=== PATIENT | male | born 1945 | race Caucasian/White ===

== ENCOUNTER 2017-03-13 14:22 | Inpatient (IN) | payer MEDICARE ==
[~2017-03-13] VITALS: Ht 175.3 cm; Wt 98.3 kg
[~2017-03-13 14:22] MED LIST: ACET-171 PO; ALLER-TEC PO; CARV6.252 PO; CHOND PO; CYAN10008 PO; FRSM80T PO; GLUCOS PO; INDA2.5T2 PO; INSU100I13 SUBQ; INSU200I SQ; LISI10TA PO; LOVENOX BRIDGING; PRAV40TA PO; VIT1CAPS8 PO; WARF7.5T4 PO
[2017-03-13 14:31] VITALS: BP 92/65; PULSE 102; RESP 15; O2SAT 95
--- NOTE | 2017-03-13 15:21 | DRSVH ---
PROCEDURE: X-RAY CHEST, TWO VIEWS ([id number]) INDICATIONS: low blood pressure TECHNIQUE: 2 views of the chest were acquired. COMPARISON: [facility], CR, CHEST 2VW, 05/13/2015, 7:25. [facility], CT, CT CHEST W CON, 12/15/2015, 16:49. FINDINGS: Surgical changes and devices: None. Lungs and pleura: No pleural effusions or pneumothorax. Lungs are clear. Elevation left hemidiaphra gm stable compared to prior examination. Mediastinum: Mediastinal contours are normal. Heart size is enlarged. Bones and chest wall: No suspicious bony abnormalities. Soft tissues appear unremarkable. L1 compr ession fracture is noted which has occurred in the interval since prior examination. IMPRESSION: 1. No acute cardiopulmonary disease process. 2. L1 compression fracture which may be acute. Please correlate with clinical data. Dictated by: Faby Vanegas MD, PhD on 03/13/2017 at 15:17 Approved by: Faby Vanegas MD, PhD on 03/13/2017 at 15:19
[2017-03-13 15:26] LABS: BASOPHILS % (AUTO) 0.3 % (0-3); EOSINOPHILS % (AUTO) 0.6 % (0-5); MONOCYTES % (AUTO) 8.9 % (4-12); Mean Corpuscular Hemoglobin 28.6 pg (27.0-35.0); NEUTROPHILS % (AUTO) 83.5 % (40-74); Platelet Count 314 bil/L (150-400)
[2017-03-13] MEDS ORDERED: 0.9% Sodium Chloride 500 ML IV ONE (15:40)
[2017-03-13 15:48] LABS: INR 4.83 ratio
[2017-03-13 16:08] LABS: Magnesium 2.2 mg/dL (1.6-2.6)
[2017-03-13 16:09] LABS: TROPONIN T 0.067 ug/L (0.0-0.011)
[2017-03-13 16:19] VITALS: BP 102/67; PULSE 95; RESP 16; O2SAT 92
--- NOTE | 2017-03-13 16:41 | DRSVH ---
PROCEDURE: CT BRAIN WITHOUT CONTRAST ([id number]) INDICATIONS: fall, on coumadin TECHNIQUE: Noncontrast 4.5 mm thick angled axial sections acquired from the foramen magnum to the vertex, with c oronal reformats. COMPARISON: None. FINDINGS: Image quality: Diagnostic. Brain: There is no acute intra-axial or extra-axial hemorrhage. No extra-axial fluid collection is i dentified. There is no midline shift or mass effect. The orbits are grossly unremarkable. Atheroscl erosis is noted involving the intracranial internal carotid arteries. No large areas of diffusely decreased attenuation are evident within the brain to suggest diffuse cer ebral edema. Moderate-sized confluent and focal areas of low-attenuation are present within the toi ventricular and deep white matter of the supratentorial brain. The ventricles and cortical sulci are moderately prominent. Bones: Calvarium and visualized facial bones are grossly intact. The imaged paranasal sinuses and m astoid air cells are clear. IMPRESSION: 1. No acute intracranial hemorrhage. 2. Moderate parenchymal volume loss and chronic small vessel ischemic changes. Dictated by: Jadiel Ragland M.D. on 03/13/2017 at 15:38 Approved by: Jadiel Ragland M.D. on 03/13/2017 at 15:40
--- NOTE | 2017-03-13 16:43 | ED.REPORT ---
HPI-General Illness Date of Service March 13, 2017 ED Provider: Mickey Crisostomo DO Pt is a 71 year old male with a hx of chronic pain, dementia, chronic afib on Warfarin, DMI, and CHF presenting to the ED complaining of generalized diffuse pain that starts in his back and radiates around his body. Associated symptoms include back pain, lower abdominal pain, belching and vomiting. He was seen in his PCP's office today for a follow up after an episode of afib and was sent to the ER for low blood pressure. His reports that he has had some recent weight loss which she thinks may have changed the shape of his abdomen, putting pressure on his back. Denies bloody stool, bowel or bladder incontinence or LE swelling. Nursing Notes Stated Complaint: LOW BLOOD PRESSURE & PAIN Chief Complaint: General Complaint Nursing Notes Reviewed: Yes Allergies: Coded Allergies: atorvastatin (Verified Adverse Reaction, Severe, myalgias, 03/13/17) Scheduled Carvedilol (Carvedilol) 12.5 Mg Tablet 12.5 MG PO BID Cyanocobalamin (Vitamin B-12) (Vitamin B-12) 1,000 Mcg Tablet 1,000 MCG PO DAILY Furosemide (Furosemide) 80 Mg Tab 80 MG PO BID Indapamide (Indapamide) 2.5 Mg Tablet 2.5 MG PO DAILY Insulin Glargine (Lantus U100 Insulin Vial) 100 Unit/Ml Vial 60 UNIT SUBQ HS Insulin Lispro (Humalog Kwikpen) 200 Unit/Ml (3 Ml) Insuln.pen 1 UNIT SQ TIDAC SLIDING SCALE Lisinopril (Lisinopril) 10 Mg Tablet 10 MG PO DAILY Pravastatin (Pravastatin) 40 Mg Tablet 40 MG PO DAILY Vit C/Vit E/Lutein/Min/[place]-3 (Ocuvite Softgel) 1 Each Capsule 1 EACH PO DAILY Warfarin Sodium (Warfarin Sodium) 7.5 Mg Tablet 7.5 MG PO SUN,WED,SUN Warfarin Sodium (Warfarin Sodium) 5 Mg Tablet 5 MG PO SUN,SUN,,SAT Scheduled PRN Acetaminophen (Acetaminophen) 500 Mg Tablet 1,000 MG PO Q6H PRN PRN For Pain General Time Seen by MD: 15:01 Chief Complaint Back pain Hx Obtained From: Patient, Spouse Arrived By: Walk-in Sudden in Onset?: No Onset Occurred: Onset unknown Symptom Duration: Since onset Location: : Back Quality: Painful Severity: Current: Moderate Severity: Maximum: Moderate Recent Healthcare: No recent doctor visit, No recent hospitalization Similar Sx Previous: Yes Past Medical History Past Medical History chronic pain, dementia, chronic afib on Warfarin, DMI, and CHF, COPD, GERD, hiatal hernia, anxiety, hyperparathyroidism w hx of hypercalcemia Smoking History Former Smoker Ambulatory Status Independent Review of Systems Full Review of Systems GI: Reports: Abdominal pain, Vomiting, Denies: Bloody/tarry stool Male: Denies Incontinence Musculoskeletal: Reports: Back pain, Denies: Extremity swelling Complete sys rev & neg: except as marked. Physical Exam Vital Signs Vital Signs Date Time Temp Pulse Resp B/P Pulse Ox O2 Delivery O2 Flow Rate FiO2 03/13/17 16:19 36.1 95 16 102/67 92 Room Air 03/13/17 14:31 36.2 102 15 92/65 95 Room Air Initial VS: Reviewed Head / Eyes: Atraumatic, Normocephalic, PERRL ENT: Mucous membranes moist, Conjunctiva normal, No scleral icterus Respiratory: Breath sounds normal, Clear to auscultation, No respiratory distress Extremities: Vascular intact, Neuro intact, No swelling, No tenderness Skin: Warm, Dry, No cyanosis Neurologic: Alert, Oriented, Nonfocal General/Constitutional: Awake, Alert Pale Cardiovascular: No murmurs Heart Rate / Rhythm: Positive: Irreg irregular rhythm, Tachycardia BP low. Abdomen: No guarding, No rebound Tenderness/Guarding/Rebound: Positive: Tender diffuse Bowel Sounds / Distention: Positive: Distention mild Back: Full range of motion Some lumbar tenderness to palpation Lower Extremity / Pelvis / MS: No edema Psychiatric: Affect NL, Mood NL Mildly confused Interpretation & Diagnostics Interpretation & Diagnostics: LABS 12/26/16 BUN 42, Creat 1.29, Ca 9.5, HgB 12.8 Lab Results Interpretation Result Diagram: 03/13/17 1515 03/13/17 1515 Test 03/13/17 15:15 White Blood Count 10.3th/mm3 (3.8-10.1) Red Blood Count 4.93mil/mm3 (4.40-5.80) Hemoglobin 14.1g/dL (13.8-17.2) Hematocrit 42.9% (41.0-50.0) Mean Corpuscular Volume 87.0fL (81-100) Mean Corpuscular Hemoglobin 28.6pg (27.0-35.0) Mean Corpuscular Hemoglobin Concent 32.9% (32.0-37.0) Red Cell Distribution Width 14.8% (12.3-15.4) Platelet Count 314bil/L (150-400) Neutrophils (%) (Auto) 83.5% (40-74) Lymphocytes (%) (Auto) 6.3% (14-46) Monocytes (%) (Auto) 8.9% (4-12) Eosinophils (%) (Auto) 0.6% (0-5) Basophils (%) (Auto) 0.3% (0-3) Prothrombin Time 53.4sec (8.1-12.5) Prothromb Time International Ratio 4.83ratio Sodium Level 131mEq/L (134-144) Potassium Level 3.9mEq/L (3.5-5.2) Chloride Level 84mEq/L (97-108) Carbon Dioxide Level 27mmol/L (18-29) Blood Urea Nitrogen 84mg/dL (8-27) Creatinine 1.86mg/dL (0.76-1.27) Estimat Glomerular Filtration Rate 38mL/min (>59) Glucose Level 212mg/dL (60-99) Calcium Level 11.0mg/dL (8.5-10.1) Magnesium Level 2.2mg/dL (1.6-2.6) Total Bilirubin 0.7mg/dL (0.0-1.2) Aspartate Amino Transf (AST/SGOT) 21U/L (0-50) Alanine Aminotransferase (ALT/SGPT) 15U/L (0-44) Alkaline Phosphatase 74U/L (25-160) Troponin T 0.067ug/L (0.0-0.011) Pro-B-Type Natriuretic Peptide 963.2pg/mL (0-376) Total Protein 8.1g/dL (6.4-8.4) Albumin 4.6g/dL (3.4-5.0) Hold Santa Top Tube Received (Received) ECG Interpretation ECG Interpretation: Afib with rvr. Old EKG was afib as well. Time: 15:16 Interpreted by: ED physician Abnormal Rate: 100 (102) X-Ray Chest Interpretation Chest Xray Interpretation: IMPRESSION: 1. No acute cardiopulmonary disease process. 2. L1 compression fracture which may be acute. Please correlate with clinical data. Dictated by: Faby Vanegas MD, PhD on 03/13/2017 at 15:17 View: AP & lat Interpretation / Wet Read by: Interpret - Radiologist CT Head Interpretation IMPRESSION: 1. No acute intracranial hemorrhage. 2. Moderate parenchymal volume loss and chronic small vessel ischemic changes. Dictated by: Jadiel Ragland M.D. on 03/13/2017 at 15:38 Study: Head CT no contrast Interpretation / Wet Read by: Interpret - Radiologist CT Abd / Pelvis Interpretation IMPRESSION: 1. New L1 compression fracture without retropulsion. 2. Mild prominence of the urinary bladder wall may be related to incomplete distention. Please correlate clinically to exclude cystitis. 3. Multiple subacute left-sided rib fractures. 4. Osteopenia. 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 -Coronary and aortic atherosclerosis. -Small bowel containing periumbilical hernia without obstruction. -Small fat containing left inguinal hernia. -Mild bilateral gynecomastia. Dictated by: Jadiel Ragland M.D. on 03/13/2017 at 15:51 Interpretation / Wet Read by: Interpret - Radiologist Re-Eval/Medical Decision Med Decision/Clinical Course Hypotension associated with dehydration and mild hyper calcium. His hemoglobin is stable, his stool guaiac was negative. He incidentally has some orthopedic injuries related to his recent falls. I strongly feel this patient ought to be admitted for IV hydration and further delineation of the symptoms. I do not see any obvious source of infection. Time of Eval: 15:40 Patient Status: Condition improved Re-Evaluation/Progress Note: Discussed radiology and lab results. Time of Eval: 16:44 Patient Status: Condition improved Re-Evaluation/Progress Note: Discussed CT results and plan for admission. Consultation : Referral / Consult Name: Dimas Lin MD Consulted With: Hospitalist Call Returned at: 17:18 Verifying Machine Operator: Will see patient, Agrees with plan, Accepts admit Counseled Regarding: Diagnosis, Lab results, Need for follow-up, When/why to return to ED Discharge & Departure Primary Impression: Acute kidney injury Additional Impressions: Supratherapeutic INR Hypotension Hypotension type: unspecified hypotension type Qualified Code: I95.9 - Hypotension, unspecified Disposition: Home Discharge Condition All VS Reviewed: Yes Condition: Improved Referrals: Norberto Ross DO (PCP) Frank Attestation Portions of this note were transcribed by Brittney Navarro. I, Dr. Crisostomo personally performed the history, physical exam and medical decision-making; I reviewed and confirmed the accuracy of the information in the transcribed note. Signed by: Frank Maria, 03/13/2017 at 1733. copies to: Norberto Ross Timothy S DO March 13, 2017 16:43 BRITTNEY NAVARRO March 13, 2017 16:44
--- NOTE | 2017-03-13 17:05 | DRSVH ---
PROCEDURE: CT ABDOMEN AND PELVIS WITHOUT CONTRAST ([id number]) INDICATIONS: abd pain, vomiting, low back pain TECHNIQUE: After the administration of oral contrast, 5 mm thick sections acquired from the diaphragms to the sy mphysis. 5 mm coronal and sagittal reformats were performed. For radiation dose reduction, the foll owing was used: automated exposure control, adjustment of mA and/or kV according to patient size. COMPARISON: [facility], CR, XR LUMBAR SPINE 2 OR 3VW, 09/05/2016, 9:30. [facility], CT, CT ABD PELVIS WO CON, 08/29/2016, 11:34. FINDINGS: Image quality: Excellent. ABDOMEN: Lung bases: Prominent elevation of the left diaphragm likely is related to diaphragmatic paralysis an d is similar to the previous study. Mild left basilar scarring versus atelectasis is noted. The alex ged portions of the right lung base are unremarkable. The heart is normal in size without a pericard ial effusion. Coronary artery atherosclerosis is present. Bilateral gynecomastia is present. Solid organs: The spleen, adrenals, liver, pancreas, and kidneys are similar to the previous exam. Peritoneum and bowel: The stomach, and duodenum, and remainder of the small bowel loops are nondilate d. Moderate residual stool seen within the colon. The appendix is well-visualized and normal. Ther e is no bowel obstruction. There is a moderate-sized periumbilical hernia containing several small b owel loops, which is unchanged. The proximal and distal small bowel loops to this hernia are nondila elli. No free fluid, loculated fluid collection or free air is evident within the abdomen. Nodes and vessels: No retroperitoneal or mesenteric adenopathy by size criteria. Aorta and inferior vena cava are normal in size. There is aortic atherosclerosis. Bones: There is a new L1 compression deformity identified with approximately 30-40% height loss that is located centrally with buckling along both the superior and inferior endplates. No additional com pression deformities are identified. No displaced fractures are seen. No significant retropulsion i s identified. No additional thoracic fractures or lumbar fractures are evident. T7, T8, and T9 left rib fractures are noted, which have a subacute appearance and have not significantly changed. The b one mineralization is diffusely decreased. PELVIS: Genitourinary: Mild prominence of the urinary bladder wall is noted. The prostate is not significant ly enlarged. There is no free fluid or loculated fluid collection within the pelvis. No free air is evident. Miscellaneous: There is a small fat containing left inguinal hernia. No pelvic lymphadenopathy is ev ident. Bones: No suspicious bony lesions. No acute pelvic fractures are seen. There is mild degenerative changes of the bilateral hips, pubis symphysis, and sacroiliac joints. IMPRESSION: 1. New L1 compression fracture without retropulsion. 2. Mild prominence of the urinary bladder wall may be related to incomplete distention. Please jennifer elate clinically to exclude cystitis. 3. Multiple subacute left-sided rib fractures. 4. Osteopenia. 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 -Coronary and aortic atherosclerosis. -Small bowel containing periumbilical hernia without obstruction. -Small fat containing left inguinal hernia. -Mild bilateral gynecomastia. Dictated by: Jadiel Ragland M.D. on 03/13/2017 at 15:51 Approved by: Jadiel Ragland M.D. on 03/13/2017 at 16:03
[2017-03-13] MEDS ORDERED: Pantoprazole 4 mg/mL 10 mL Inj IVPUSH ONE (17:10)
[2017-03-13] MEDS ORDERED: HYDROcodone-APAP 5-325 mg Tablet PO ONE (17:15)
[2017-03-13] MEDS: 0.9% Sodium Chloride 1,000 ML IV SCH (17:16)
[2017-03-13] MEDS ORDERED: INSU100V7 SUBQ (17:29)
[2017-03-13] MEDS ORDERED: CARV12.52 PO (17:29)
[2017-03-13] MEDS ORDERED: WARF5TAB7 PO (17:32)
[2017-03-13] MEDS ORDERED: WARF7.5T4 PO (17:32)
[2017-03-13 18:48] VITALS: BP 90/46; PULSE 94; RESP 23; O2SAT 94
--- NOTE | 2017-03-13 18:58 | PCM.HPMED ---
Subjective Date of Service March 13, 2017 Primary Provider: Admitting Physician: Primary Care Physician: Norberto Ross DO Attending Physician: Chief Complaint: Sent from clinic with hypotension tachycardia History of Present Illness: 71-year-old male with diabetes, hypertension, hypercalcemia, COPD, GERD, afib on coumadin sent from PCP with hypotension, tachycardia. pt has been closely followed by by PCP, seen 2weeks ago, note to have afib with [id number], PCP discussed with software engineer intern, decided to keep the regimen, wanted pt for follow up. patient went to clinic today. noticed BP86 /56, HR101, sent to ED for further eval. pt has baseline dementia, most of hx was obtained by at the bedside. As per , pt had fall due to weakness on LE when he got out of bed, since then, his chronic back pain got really worse , he has been declining functionally with very poor appetite, decreased oral intake, intermittent nausea, no vomiting, pt took a lot of Tums which made him gassy. but denied having abdominal pain, having soft stools at baseline, no constipation or diarrhea. for the past 2days, pt was not able to eat barely anything. As per , pt has been complaint to all his meds including coumadin , all of diuretics. In ED. VS 92/65, 102, afebrile, 95% on RA, labs showed mild leukocytosis, hyponatremia, markedly elevated BUN 84, cr1.86, mild troponemia, [id number]. CXR /abd pelvis CT/CTH were unremarkable. pt was given protonix, norco, 500cc NS. EKG showed afib During the interview, pt denied any SOB, chest pain, palpitation, cough, sputum , fever, chills, n/v/c/d, sick contacts. Review of Systems: Pertinent positives as noted in history of present illness. All other systems were reviewed and are negative Allergies Coded Allergies: atorvastatin (Verified Adverse Reaction, Severe, myalgias, 03/13/17) Home Medications as per PCP 03/13 Viet Estrada. [id number] 1945 03/13/2017 01:20 PM Page: 11/14 MEDICATIONS Medication Dose Sig Description Comments Aller-Albertina 10 mg tablet 10 mg take 1 tablet by oral route every day as needed carvedilol 12.5 mg tablet 12.5 mg take 1 tablet by oral route 2 times every day with food donepezil 5 mg tablet 5 mg take 1 tab AM and 2 tabs at bedtime for 2 weeks, then increase to 2 tabs BID thereafter FUROSEMIDE 80 MG TABLET 80 mg TAKE 1 TABLET BY MOUTH TWICE A DAY glucosamine-chondroitin 2,000 mg-1,200 mg/30 mL oral liquid 2,000 mg-1,200 mg/ 30 mL Take one ounce daily Humalog 100 unit/mL subcutaneous solution 100 unit/mL INJECT 45 TO 60 UNITS DAILY PER INSULIN PROTOCOL indapamide 2.5 mg tablet 2.5 mg take 1 tablet by oral route every day in the morning Lantus Solostar 100 unit/mL (3 mL) subcutaneous insulin pen 100 unit/mL (3 mL) INJECT 72 UNITS SUBCUTANEOUSLY ONCE DAILY IN 2 DIVIDED DOSES LISINOPRIL 10 MG TABLET 10 mg TAKE 1 TABLET BY MOUTH EVERY DAY Ocuvite 150 mg-30 unit-5 mg-150 mg capsule 150 mg-30 unit-5 mg-150 mg Take one capsule by mouth daily OneTouch Ultra Test strips test blood sugar ACHS PRAVASTATIN SODIUM 40 MG TAB 40 mg TAKE 1 TABLET BY MOUTH EVERY DAY SPIRONOLACTONE 25 MG TABLET 25 mg TAKE 1 TABLET BY MOUTH EVERY DAY Tylenol Ex Str Arthritis Pain 500 mg tablet 500 mg take 2 tablet by oral route every 6 hours as needed Vitamin B-12 1,000 mcg tablet 1,000 mcg Take one tablet by mouth daily warfarin 5 mg tablet 5 mg Take one and one half TABLETS (7.5mg)BY MOUTH ON SUN, SUN, and FRI and one tablet (5mg) all other days PMH Diabetic peripheral neuropathy associated with type 2 diabetes mellitus Hypertension Dyspnea Hypercalcemia Hyperlipidemia COPD GERD Mitral regurgitation Tricuspid regurgitation CHF Surgical History parathyroidectomy per Family History no CAD Social History Hx Alcohol Use: No Hx Substance Use: No Hx Tobacco Use: Yes Smoking Status: Former Smoker Exam Vital Signs Vital Sign - Last Date Time Temp Pulse Resp B/P Pulse Ox O2 Delivery O2 Flow Rate FiO2 03/13/17 16:19 36.1 95 16 102/67 92 Room Air Exam NAD, comfortably laying down on the bed no JVD, dryMM, no LAD RRR, nl s1, s2 no mrg CTAB, no w,c S,ND,NT,normoactive BS+, ventral hernia, soft reproducible warm, varicose vein throughout, on MAIK stocking, no edema, pulses 2/2 Lab and Diagnostics Result Diagram: 03/13/17 1515 03/13/17 1515 X-Rays, CTs and MRIs PROCEDURE: X-RAY CHEST, TWO VIEWS ([id number]) INDICATIONS: low blood pressure TECHNIQUE: 2 views of the chest were acquired. COMPARISON: [facility], CR, CHEST 2VW, 05/13/2015, 7:25. [facility], CT, CT CHEST W CON, 12/15/2015, 16:49. FINDINGS: Surgical changes and devices: None. Lungs and pleura: No pleural effusions or pneumothorax. Lungs are clear. Elevation left hemidiaphragm stable compared to prior examination. Mediastinum: Mediastinal contours are normal. Heart size is enlarged. Bones and chest wall: No suspicious bony abnormalities. Soft tissues appear unremarkable. L1 compression fracture is noted which has occurred in the interval since prior examination. IMPRESSION: 1. No acute cardiopulmonary disease process. 2. L1 compression fracture which may be acute. Please correlate with clinical data. Dictated by: Faby Vanegas MD, PhD on 03/13/2017 at 15:17 Approved by: Faby Vanegas MD, PhD on 03/13/2017 at 15:19 PROCEDURE: CT ABDOMEN AND PELVIS WITHOUT CONTRAST ([id number]) INDICATIONS: abd pain, vomiting, low back pain TECHNIQUE: After the administration of oral contrast, 5 mm thick sections acquired from the diaphragms to the symphysis. 5 mm coronal and sagittal reformats were performed. For radiation dose reduction, the following was used: automated exposure control, adjustment of mA and/or kV according to patient size. COMPARISON: [facility], CR, XR LUMBAR SPINE 2 OR 3VW, 09/05/2016, 9:30. [facility], CT, CT ABD PELVIS WO CON, 08/29/2016, 11:34. FINDINGS: Image quality: Excellent. ABDOMEN: Lung bases: Prominent elevation of the left diaphragm likely is related to diaphragmatic paralysis and is similar to the previous study. Mild left basilar scarring versus atelectasis is noted. The imaged portions of the right lung base are unremarkable. The heart is normal in size without a pericardial effusion. Coronary artery atherosclerosis is present. Bilateral gynecomastia is present. Solid organs: The spleen, adrenals, liver, pancreas, and kidneys are similar to the previous exam. Peritoneum and bowel: The stomach, and duodenum, and remainder of the small bowel loops are nondilated. Moderate residual stool seen within the colon. The appendix is well-visualized and normal. There is no bowel obstruction. There is a moderate-sized periumbilical hernia containing several small bowel loops, which is unchanged. The proximal and distal small bowel loops to this hernia are nondilated. No free fluid, loculated fluid collection or free air is evident within the abdomen. Nodes and vessels: No retroperitoneal or mesenteric adenopathy by size criteria. Aorta and inferior vena cava are normal in size. There is aortic atherosclerosis. Bones: There is a new L1 compression deformity identified with approximately 30- 40% height loss that is located centrally with buckling along both the superior and inferior endplates. No additional compression deformities are identified. No displaced fractures are seen. No significant retropulsion is identified. No additional thoracic fractures or lumbar fractures are evident. T7, T8, and T9 left rib fractures are noted, which have a subacute appearance and have not significantly changed. The bone mineralization is diffusely decreased. PELVIS: Genitourinary: Mild prominence of the urinary bladder wall is noted. The prostate is not significantly enlarged. There is no free fluid or loculated fluid collection within the pelvis. No free air is evident. Miscellaneous: There is a small fat containing left inguinal hernia. No pelvic lymphadenopathy is evident. Bones: No suspicious bony lesions. No acute pelvic fractures are seen. There is mild degenerative changes of the bilateral hips, pubis symphysis, and sacroiliac joints. IMPRESSION: 1. New L1 compression fracture without retropulsion. 2. Mild prominence of the urinary bladder wall may be related to incomplete distention. Please correlate clinically to exclude cystitis. 3. Multiple subacute left-sided rib fractures. 4. Osteopenia. 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 -Coronary and aortic atherosclerosis. -Small bowel containing periumbilical hernia without obstruction. -Small fat containing left inguinal hernia. -Mild bilateral gynecomastia. Dictated by: Jadiel Ragland M.D. on 03/13/2017 at 15:51 Approved by: Jadiel Ragland M.D. on 03/13/2017 at 16:03 PROCEDURE: CT BRAIN WITHOUT CONTRAST ([id number]) INDICATIONS: fall, on coumadin TECHNIQUE: Noncontrast 4.5 mm thick angled axial sections acquired from the foramen magnum to the vertex, with coronal reformats. COMPARISON: None. FINDINGS: Image quality: Diagnostic. Brain: There is no acute intra-axial or extra-axial hemorrhage. No extra-axial fluid collection is identified. There is no midline shift or mass effect. The orbits are grossly unremarkable. Atherosclerosis is noted involving the intracranial internal carotid arteries. No large areas of diffusely decreased attenuation are evident within the brain to suggest diffuse cerebral edema. Moderate-sized confluent and focal areas of low-attenuation are present within the periventricular and deep white matter of the supratentorial brain. The ventricles and cortical sulci are moderately prominent. Bones: Calvarium and visualized facial bones are grossly intact. The imaged paranasal sinuses and mastoid air cells are clear. IMPRESSION: 1. No acute intracranial hemorrhage. 2. Moderate parenchymal volume loss and chronic small vessel ischemic changes. Dictated by: Jadiel Ragland M.D. on 03/13/2017 at 15:38 Approved by: Jadiel Ragland M.D. on 03/13/2017 at 15:40 Cardiac Echo Impressions Echocardiogram Report Name: VIET ESTRADAtudjamar Da te: 05/28/2015 Height: 70 in Hospital Exam Location: [facility] Weight: 261 lb Gender: Male BSA: 2.3 m2 : 1945 Age: 69 yrs BP: 117/79 mmHg Reason For Study: CHF Ordering Physician: Harpal Rossformed By: Carmen Rivera Referring Physician: Dr Sara Barton Interpretation Summary A contrast injection of Definity was performed to improve assessment of LV function. The study quality was technically difficult. The left ventricular ejection fraction is grossly normal. There are no obvious focal wall motion abnormalities noted but poor endocardial definition reduces the sensitivity for the detection of such. There is mild mitral regurgitation. The right ventricular systolic pressure is estimated at 58 mmHg assuming a right atrial pressure of 8 mm Hg. Assessment & Plan Acute, active severely dehydrated state, POA, with increased bun/cr, likely due to poor oral intake, diuretics. -continue 100cc/hr, NS, judiciously given hx of CHF. -liberal oral intake, -UA to see any infectious etiology. JAYCEE, POA, likely prerenal due to poor oral intake, diuretics, nephrotoxins, -avoid nephrotoxins, renally adjust meds, i/o, daily wt -if no improvement, will get renal US, persisent afib, POA, rate <110, mildly elevated from baseline, likely due to dehydration. INR4, FOBT neg per ED. -would continue coreg 12.5mg bid, hold diuretics-lisinopril/aldactone, indapamide, -hold Coumadin, given no active bleeding, no vitK indicated, would resume upon d /c Chronic, stable Diabetic peripheral neuropathy associated with type 2 diabetes mellitus, continue lisproSS Hypertension, as above, Hypercalcemia, mildly elevated from baseline, will monitor with IVF for now, Hyperlipidemia, continue statin, COPD, resume home neb tx GERD, will try Ranitidine prn CHF, chronic, diastolic based on TTE , hold off on diuretics as above. ventral hernia, stable, dispo:Patient will be admitted with inpatient status with expectation of inpatient therapy for more than 2 midnights diet: Heart healthy dvt ppx: SCD Full code Time spent 65min Dimas Lin MD March 13, 2017 17:23
[2017-03-13 19:45] VITALS: BP 89/52; PULSE 94; RESP 21; O2SAT 95
[2017-03-13 20:28] VITALS: BP 103/70; PULSE 101; RESP 18; O2SAT 96
[2017-03-13 20:33] VITALS: PULSE 99
[2017-03-13] MEDS: Lidocaine Topical 5% Patch TOPICAL SCH (21:45)
[2017-03-13] MEDS: Insulin LISPRO 300 Unit/3 mL Inj SUBQ SCH (23:40)
--- NOTE | 2017-03-14 01:04 | NUR ---
Admit note: Pt admitted from ER via wheelchair. Able to get up with a FWW and one assist. Sitting in chair due to pain to back and ribs. Lidoderm patch and pain meds administered. States unable to lie in bed. states he does tolerate it at times if lying on his left side. Denies abdominal pain, ate soup/crackers with reports of nausea. Alert and oriented to self and place. Pleasant and conversant appropriate, states understanding call light use. states pt fell "one week ago Sunday", pt is impulsive. [place] alarm placed in chair, pt not reliable with call light use.
[2017-03-14 01:13] VITALS: BP 91/58; PULSE 83; RESP 18; O2SAT 95
[2017-03-14] MEDS: HYDROcodone-APAP 5-325 mg Tablet PO PRN ×3 (01:20→08:53)
[2017-03-14] MEDS: 0.9% Sodium Chloride 1,000 ML IV SCH ×3 (01:21→23:33)
[2017-03-14] MEDS: Alum-Mag Hydrox-Simeth 30 mL Suspension PO PRN (04:17)
[2017-03-14 04:46] VITALS: BP 105/70; PULSE 95; RESP 18; O2SAT 92
--- NOTE | 2017-03-14 05:05 | NUR ---
Pain: Difficulty finding a comfortable position most of the night. Tried bed in chair, recliner chair, standing, and pt is taking a walk with assistance around the unit at this time. Pain meds administered when able. At times, pt forgot how to use the call light and would hit the bed rail with his cane for assistance.
[2017-03-14 05:44] LABS: APPEARANCE,URINE CLEAR (CLEAR,HAZY); COLOR,URINE YELLOW (YELLOW); OCCULT BLOOD,URINE NEGATIVE (NEGATIVE); UROBILINOGEN,URINE NORMAL (NORMAL)
[2017-03-14 06:24] LABS: BASOPHILS % (AUTO) 0.3 % (0-3); EOSINOPHILS % (AUTO) 1.4 % (0-5); MONOCYTES % (AUTO) 10.5 % (4-12); Mean Corpuscular Hemoglobin 28.7 pg (27.0-35.0); Mean Corpuscular Volume 87.5 fL (81-100); Platelet Count 281 bil/L (150-400)
[2017-03-14 06:33] LABS: Magnesium 2.1 mg/dL (1.6-2.6); Phosphorus 3.6 mg/dL (2.5-4.9)
[2017-03-14] MEDS: Lidocaine Topical 5% Patch TOPICAL SCH (08:39)
[2017-03-14] MEDS: Insulin LISPRO 300 Unit/3 mL Inj SUBQ SCH ×4 (08:41→21:38)
[2017-03-14] MEDS: Polyethylene Glycol (PEG) 17 Gm Powder PO SCH (08:52)
--- NOTE | 2017-03-14 08:54 | PCM.PNMED ---
Subjective Date of Service March 14, 2017 Subjective pt was on IVF 100cc/hr NS, couldn't sleep due to back pain, lidocaine patch, tramadol didn't work well. denied SOB, drinking water liberally PO supplement was ordered nephrology consulted placed UA noticed hyaline cast, Exam Vital Signs Vital Sign - Last Date Time Temp Pulse Resp B/P Pulse Ox O2 Delivery O2 Flow Rate FiO2 03/14/17 04:46 36.5 95 18 105/70 92 Room Air Intake and Output 03/13/17 03/13/17 03/14/17 Cumulative From/Thru 15:00 23:00 07:00 03/13/17 14:31 - 03/14/17 06:23 Intake Total 500 ml 1665 ml 2165 ml Output Total 490 ml 490 ml Balance 500 ml 1175 ml 1675 ml Intake Oral 880 ml 880 ml IV Total 500 ml 785 ml 1285 ml Output Urine Total 490 ml 490 ml Exam NAD, comfortably laying down on the bed no JVD, dryMM, no LAD RRR, nl s1, s2 no mrg CTAB, no w,c S,ND,NT,normoactive BS+, ventral hernia, soft reproducible warm, varicose vein throughout, on MAIK stocking, no edema, pulses 2/2 IVs and Medications Medications Reviewed: Medications were reviewed in detail Lab and Diagnostics Result Diagram: 03/14/17 0535 03/14/17 0535 X-Rays, CTs and MRIs PROCEDURE: X-RAY CHEST, TWO VIEWS ([id number]) INDICATIONS: low blood pressure TECHNIQUE: 2 views of the chest were acquired. COMPARISON: [facility], CR, CHEST 2VW, 05/13/2015, 7:25. [facility], CT, CT CHEST W CON, 12/15/2015, 16:49. FINDINGS: Surgical changes and devices: None. Lungs and pleura: No pleural effusions or pneumothorax. Lungs are clear. Elevation left hemidiaphragm stable compared to prior examination. Mediastinum: Mediastinal contours are normal. Heart size is enlarged. Bones and chest wall: No suspicious bony abnormalities. Soft tissues appear unremarkable. L1 compression fracture is noted which has occurred in the interval since prior examination. IMPRESSION: 1. No acute cardiopulmonary disease process. 2. L1 compression fracture which may be acute. Please correlate with clinical data. Dictated by: Faby Vanegas MD, PhD on 03/13/2017 at 15:17 Approved by: Faby Vanegas MD, PhD on 03/13/2017 at 15:19 PROCEDURE: CT ABDOMEN AND PELVIS WITHOUT CONTRAST ([id number]) INDICATIONS: abd pain, vomiting, low back pain TECHNIQUE: After the administration of oral contrast, 5 mm thick sections acquired from the diaphragms to the symphysis. 5 mm coronal and sagittal reformats were performed. For radiation dose reduction, the following was used: automated exposure control, adjustment of mA and/or kV according to patient size. COMPARISON: [facility], CR, XR LUMBAR SPINE 2 OR 3VW, 09/05/2016, 9:30. [facility], CT, CT ABD PELVIS WO CON, 08/29/2016, 11:34. FINDINGS: Image quality: Excellent. ABDOMEN: Lung bases: Prominent elevation of the left diaphragm likely is related to diaphragmatic paralysis and is similar to the previous study. Mild left basilar scarring versus atelectasis is noted. The imaged portions of the right lung base are unremarkable. The heart is normal in size without a pericardial effusion. Coronary artery atherosclerosis is present. Bilateral gynecomastia is present. Solid organs: The spleen, adrenals, liver, pancreas, and kidneys are similar to the previous exam. Peritoneum and bowel: The stomach, and duodenum, and remainder of the small bowel loops are nondilated. Moderate residual stool seen within the colon. The appendix is well-visualized and normal. There is no bowel obstruction. There is a moderate-sized periumbilical hernia containing several small bowel loops, which is unchanged. The proximal and distal small bowel loops to this hernia are nondilated. No free fluid, loculated fluid collection or free air is evident within the abdomen. Nodes and vessels: No retroperitoneal or mesenteric adenopathy by size criteria. Aorta and inferior vena cava are normal in size. There is aortic atherosclerosis. Bones: There is a new L1 compression deformity identified with approximately 30- 40% height loss that is located centrally with buckling along both the superior and inferior endplates. No additional compression deformities are identified. No displaced fractures are seen. No significant retropulsion is identified. No additional thoracic fractures or lumbar fractures are evident. T7, T8, and T9 left rib fractures are noted, which have a subacute appearance and have not significantly changed. The bone mineralization is diffusely decreased. PELVIS: Genitourinary: Mild prominence of the urinary bladder wall is noted. The prostate is not significantly enlarged. There is no free fluid or loculated fluid collection within the pelvis. No free air is evident. Miscellaneous: There is a small fat containing left inguinal hernia. No pelvic lymphadenopathy is evident. Bones: No suspicious bony lesions. No acute pelvic fractures are seen. There is mild degenerative changes of the bilateral hips, pubis symphysis, and sacroiliac joints. IMPRESSION: 1. New L1 compression fracture without retropulsion. 2. Mild prominence of the urinary bladder wall may be related to incomplete distention. Please correlate clinically to exclude cystitis. 3. Multiple subacute left-sided rib fractures. 4. Osteopenia. 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 -Coronary and aortic atherosclerosis. -Small bowel containing periumbilical hernia without obstruction. -Small fat containing left inguinal hernia. -Mild bilateral gynecomastia. Dictated by: Jadiel Ragland M.D. on 03/13/2017 at 15:51 Approved by: Jadiel Ragland M.D. on 03/13/2017 at 16:03 PROCEDURE: CT BRAIN WITHOUT CONTRAST ([id number]) INDICATIONS: fall, on coumadin TECHNIQUE: Noncontrast 4.5 mm thick angled axial sections acquired from the foramen magnum to the vertex, with coronal reformats. COMPARISON: None. FINDINGS: Image quality: Diagnostic. Brain: There is no acute intra-axial or extra-axial hemorrhage. No extra-axial fluid collection is identified. There is no midline shift or mass effect. The orbits are grossly unremarkable. Atherosclerosis is noted involving the intracranial internal carotid arteries. No large areas of diffusely decreased attenuation are evident within the brain to suggest diffuse cerebral edema. Moderate-sized confluent and focal areas of low-attenuation are present within the periventricular and deep white matter of the supratentorial brain. The ventricles and cortical sulci are moderately prominent. Bones: Calvarium and visualized facial bones are grossly intact. The imaged paranasal sinuses and mastoid air cells are clear. IMPRESSION: 1. No acute intracranial hemorrhage. 2. Moderate parenchymal volume loss and chronic small vessel ischemic changes. Dictated by: Jadiel Ragland M.D. on 03/13/2017 at 15:38 Approved by: Jadiel Ragland M.D. on 03/13/2017 at 15:40 Cardiac Echo Impressions Echocardiogram Report Name: LIZZ ESTRADA te: 05/28/2015 Height: 70 in Hospital Exam Location: [facility] Weight: 261 lb Gender: Male BSA: 2.3 m2 : 1945 Age: 69 yrs BP: 117/79 mmHg Reason For Study: CHF Ordering Physician: Harpal Rossformed By: Carmen Rivera Referring Physician: Dr Sara Barton Interpretation Summary A contrast injection of Definity was performed to improve assessment of LV function. The study quality was technically difficult. The left ventricular ejection fraction is grossly normal. There are no obvious focal wall motion abnormalities noted but poor endocardial definition reduces the sensitivity for the detection of such. There is mild mitral regurgitation. The right ventricular systolic pressure is estimated at 58 mmHg assuming a right atrial pressure of 8 mm Hg. Assessment & Plan Acute, active severely dehydrated state, POA, with increased bun/cr, likely due to poor oral intake, diuretics. UA-hyaline cast, indicating dehydration. no granular cast, -pt still look volume depleted, no signs of overload with IVF, clinically stable , -continue 100cc/hr, NS, judiciously given hx of CHF. -liberal oral intake, JAYCEE, POA, likely prerenal vs ATN due to poor oral intake, diuretics, nephrotoxins, -appreciate nephrology input -Bun/Cr still remained unchanged -avoid nephrotoxins, renally adjust meds, i/o, daily wt -renal US ordered -awaits urine lytes, FEurea -will see CPK level persisent afib, POA, rate <110, mildly elevated from baseline, likely due to dehydration. INR4, FOBT neg per ED. -coreg decreased from 12.5mg bid to 6.25 bid given BP, hold diuretics-lisinopril /aldactone, indapamide, -hold Cumadin, given no active bleeding, no vitK indicated, would resume upon d/ c L1 compression fx, POA, likely resulted from recent fall, baseline hypercalcemia , -Lidocaine patch, increase tramadol to 100 bid today -percocet prn, -tylenol standing, avoid NSAID -will get vitD, PTH level mild troponin leak, POA, likely in the setting of severe JAYCEE, possible rhabdo?, stable, no signs of ACS. Chronic, stable Diabetic peripheral neuropathy associated with type 2 diabetes mellitus, continue lisproSS Hypertension, as above, Hypercalcemia, mildly elevated from baseline, resolved with IVF Hyperlipidemia, continue statin, COPD, resume home neb tx GERD, will try Ranitidine prn CHF, chronic, diastolic based on TTE , hold off on diuretics as above. ventral hernia, stable, dispo:likely 2-3more days, diet: Heart healthy dvt ppx: SCD Full code VTE Mechanical Devices: Anti-Embolic stockings Time spent 35min Dimas Lin MD March 14, 2017 08:54
[2017-03-14 09:00] LABS: INR 4.87 ratio
[2017-03-14 09:26] VITALS: BP 100/71; PULSE 100; RESP 20; O2SAT 94
[2017-03-14 10:53] VITALS: PULSE 95
--- NOTE | 2017-03-14 11:53 | DRSVH ---
PROCEDURE: US RENAL SONOGRAM INDICATIONS: severe JAYCEE TECHNIQUE: Real-time scanning was performed of the kidneys and bladder, with image documentation. COMPARISON: [facility], CT, CT ABD PELVIS WO CON, 03/13/2017, 16:19. FINDINGS: Kidneys: Kidneys are normal in size. Right kidney measures 10.0 cm long; left kidney measures 10.2 cm long. Right renal cortical thickness is 1.4 cm; left renal cortical thickness is 0.1 cm. Renal c ortical echotexture is normal. No hydronephrosis or nephrolithiasis. No suspicious solid mass lesio ns. Left kidney cyst redemonstrated with peripheral calcification measuring roughly 19 mm. Bladder: Pre-void bladder volume is 108 mL. Post-void residual is 93 mL. Pre-void images demonstra te no intraluminal masses or stones. On pre-void images, neither ureteral jets are noted with color Doppler interrogation. (Of note, ureteral jets may not be detectable in up to 25% of cases due to in sufficient differences in specific gravity between ureteral and bladder urine). Miscellaneous: No free pelvic fluid. IMPRESSION: Small left renal cyst with peripheral wall calcification redemonstrated otherwise kidneys are grossly normal. Dictated by: Uriel GUNTER Interpreted: Kee Mg MD on 03/14/2017 at 11:50 Transcribed by: KAIA on 03/14/2017 at 11:52 Approved by: Kee Mg M.D. on 03/14/2017 at 14:27
[2017-03-14] MEDS ORDERED: Acetaminophen IV 1,000 MG in IV Premix 1 EACH IV ONE (12:35)
[2017-03-14] MEDS: HYDROmorphone 1 mg/mL Inj IVPUSH PRN ×3 (13:06→22:41)
[2017-03-14] MEDS: Ondansetron 2 mg/mL 2 mL Inj IVPUSH PRN ×2 (13:06→21:28)
[2017-03-14 15:12] VITALS: BP 107/64; PULSE 96; RESP 22; O2SAT 96
--- NOTE | 2017-03-14 16:03 | CONS ---
[address] [address] CONSULTATION REPORT PATIENT: LIZZ ESTRADA : 1945 MR#: [id number] ADMIT: 03/13/2017 JOB ID: [id number] NEPHROLOGY CONSULTATION: DATE OF SERVICE: 03/14/2017 REQUESTING PHYSICIAN: Dimas Lin MD REASON FOR CONSULTATION: Management of abnormal kidney function. CHIEF COMPLAINT: Hypotension. PRESENT ILLNESS: This is a 71-year-old, male with significant past medical history of type 2 diabetes, hypertension, chronic atrial fibrillation, CHF, hyperparathyroidism, status post parathyroidectomy, who was sent by his PCP due to hypotension. According to his , the patient had episode of fall a week and a half ago. Subsequently, he has had worsening back pain in which he was on Tylenol as needed for pain. His assumed that he was on Tylenol at least 6-8 pills a day as needed; however he is not on the medication every single day. His functional status has declined over time after the fall. He has poor oral intake. The patient has no history of fever or chills, vomiting or diarrhea. Despite being sick, he remained on the medications including lisinopril, furosemide, indapamide, spironolactone and carvedilol. Yesterday, the patient went to see his family doctor and was found to have hypotension with a blood pressure of 86/56, and heart rate of 101. The patient later on was sent to the emergency department for further investigation. Upon arrival, his initial blood pressure was 92/65 with a heart rate of 102. The patient received 500 cc normal saline bolus. Overnight, his blood pressure was on the low side but overall has improved. This morning his blood pressure was 100/71. His initial blood work showed sodium of 131, BUN of 84, creatinine of 1.86. Repeated BMP today showed sodium 133, potassium of 4.0, chloride of 86, bicarb 31, BUN of 83, creatinine of 2.19. During my visit today, the patient is complaining of moderate low back pain. He was on tramadol and Saltese as needed. Lidocaine patch was also applied. However he reported that the pain has not been well controlled. CT abdomen and pelvis apparently showed new L1 compression fracture without retropulsion, osteopenia noted, multiple subacute left-sided rib fractures identified. There is no evidence of hydronephrosis. According to his , the patient never had history of kidney disease. PAST MEDICAL HISTORY: 1. 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 2. Hypertension. 3. Hyperparathyroidism, status post parathyroidectomy. 4. Dyslipidemia. 5. CHF. 6. Chronic atrial fibrillation. SURGICAL HISTORY: Status post parathyroidectomy. FAMILY HISTORY: Positive for cancer, atrial fibrillation, diabetes in the family. There is no history of kidney disease in the family. SOCIAL HISTORY: Patient is a former smoker. He denies using of alcohol, tobacco or illicit drugs. MEDICATIONS: Reviewed. REVIEW OF SYSTEMS: Fourteen point review of system was performed. PHYSICAL EXAMINATION: Vitals: Temperature 36.4, pulse 100, respiratory 20, blood pressure 100/71, O2 sat 94% on room air. General appearance: Awake, alert, oriented x3, in moderate distress with moderate pain. HEENT: Atraumatic. Moist mucous membranes. No pallor no jaundice. No JVD. No lymphadenopathy. No thyroid enlargement. Heart: Irregular rhythm. Tachycardic. Soft systolic murmur noted. Lungs: Clear to auscultation bilaterally. No wheezing. No rhonchi. Abdomen is soft. Active bowel sounds. Nontender. Nondistended. No hepatosplenomegaly. Extremities: No edema, cyanosis or clubbing of fingers. DIAGNOSTIC DATA: Echocardiogram in May 2015 that showed normal ejection fraction, right ventricular systolic pressure is 58 mmHg, mild mitral regurgitation. LABORATORY DATA: Sodium 133, potassium 4.0, chloride 86, bicarb 31, BUN 83, creatinine 2.19. Glucose 163, calcium 9.7, phosphorus 3.6, magnesium 2.1. Total bilirubin is 0.8. WBC 8.8, hemoglobin 12.9, platelets 281. INR 4.87. UA showed specific gravity 1.014, pH 6.0, RBCs 0-2, WBCs 0-5, hyaline cast 5. Urine creatinine 77, urine sodium 38. ASSESSMENT: 1. Acute kidney injury secondary to prerenal azotemia due to over-diuresis in the setting off poor oral intake. 2. Hypovolemic hyponatremia. 3. Hypercalcemia with underlying disease of hyperparathyroidism, status post parathyroidectomy. 4. Chronic atrial fibrillation with rapid ventricular response. 5. Supratherapeutic INR. 6. Diastolic heart failure. 7. History of type 2 diabetes with neuropathy. 8. Hypertension. Agreed with the primary team to restore intravascular volume with normal saline cautiously given history of heart failure. I will monitor postvoid residual since we are giving narcotics which can cause urinary retention. Hold diuretics for now. We will resume them once he becomes euvolemic. Repeat kidney function, CBC, calcium, magnesium, phosphorus level in the morning. Thank you for allowing me to participate in the care of your patient. We will monitor along with you.
--- NOTE | 2017-03-14 17:36 | NUR ---
Pain and safety Continued to have back pain entire shift which was not relieved with Garrison or Tramadol. Did give Dilaudid 1mg IV push which patient states was effective. After dose of Dilaudid patient did sleep for 2 hours. Continues to get OOB without assistance. Benson alarms in place. is not in room as this note is being written. Curtain raised for frequent observation. Continue rounding. Addendum: 03/14/17 at 1828 by ASHLEY MARADIAGA RN Starting at 1700 and until present time patient has been increasingly confused. Patient continues to get dressed "stating that he was going to leave". Unable to describe why he is in hospital. Redirected with 1:1 care and reminded him that he was here so his back will get better. Benson alarms in use. Continues to not use call light. Attempts to use telephone to call but unable to do so. This RN assisted patient to call .
--- NOTE | 2017-03-14 18:06 | DRSVH ---
[facility] [address] [place] [address] Echocardiogram Report Name: LIZZ ESTRADA te: 03/14/2017 Height: 69 in Hospital Exam Location: [facility] Weight: 220 lb Gender: Male BSA: 2.2 m2 : 1945 Age: 71 yrs BP: 105/70 mmHg Reason For Study: Congestive Heart Failure Ordering Physician: HOSPITALIST CONSTANCEerformed By: Harjinder Lloyd Referring Physician: NICHELLE POLANCO Interpretation Summary Patient has dextrocardia. 1) Small left ventricular size with uppper normal thickness and normal systolic function (EF 60-65%). 2) Moderately to severely dilated left ventricle with moderately reduced function. 3) Severe biatrial enlargement present. 4) Severe functional tricuspid regurgitation present. 5) Pulmonary hypertension present, estimated systolic pulmonary pressure of 72mmHg. 6) Elevated right sided filling pressures based on dilated non-compressible IVC. 7) Mildly dilated aortic root (diameter 4.2cm). 8) Compared to the Echo done 05/28/2015, right ventricular dysfunction, pulmonary pressures, and right sided filling pressures are higher on today's study. Procedure: A two-dimensional transthoracic echocardiogram with color flow and Doppler was performed. Comparison is made with the echocardiogram of 05/28/2015. The study quality was technically difficult. Patient has dextrocardia. The heart rate ranged between 88-111 bpm during the study. Left Ventricle: The left ventricular cavity is small. Left ventricular wall thickness is at the upper limits of normal. The ejection fraction is estimated to be 60-65%. Left ventricular systolic function is normal. There are no obvious focal wall motion abnormalities noted but poor endocardial definition reduces the sensitivity for the detection of such. Right Ventricle: The right ventricle is moderate to severely dilated. Right ventricular systolic function is moderately reduced. Atria: There is severe biatrial enlargement. There is no Doppler evidence for an interatrial shunt. Mitral Valve: The mitral valve is not well visualized. The mitral valve leaflets appear thickened, but open well. There is mild mitral regurgitation. Aortic Valve: The aortic valve is trileaflet. The aortic valve opens well. There is mild aortic valve sclerosis. There is no aortic valve stenosis. No aortic regurgitation is present. Tricuspid Valve: The tricuspid valve leaflets are thickened and/or calcified, but open well. There is severe tricuspid regurgitation. The right ventricular systolic pressure is estimated at 72 mmHg assuming a right atrial pressure of 15 mm Hg. Pulmonic Valve: The pulmonic valve is not well seen, but is grossly normal. There is a trace or physiologic amount of pulmonic regurgitation. Great Vessels: The aortic root is mildly dilated. The ascending aorta is at the upper limits of normal in size. The pulmonary artery is normal size. The IVC is dilated (diameter is greater than 2.1 cm) and it collapses less than 50% with a sniff. This suggests a high right atrial pressure of 15 mm Hg. Pericardium/ Pleura There is no pericardial effusion. There is no pleural effusion. MMode/2D Measurements & Calculations LVIDd: 3.9 cm LA dimension: 5.3 cm RA area LVOT diam: 2.3 cm LVIDs: 2.4 cm Ao root diam FS: 38.2 % LA A4 area: 26.6 cm : 36.3 2m IVSd: 1.1 cm LA length (vol) asc Aorta Diam IVC diam: 3.4 cm Ao Arch Diam (Prox Trans): 2.6 cm LV springer. diameter/BSA LV sys. diameter/BSA (cm/m^2): 1.8 (cm/m^2): 1.1 Doppler Measurements & Calculations Ao V2 max MV E max miguelangel TR max miguelangel Ao V2 mean : 94.1 cm/sec : 54.6 cm/sec : 375.7 cm/sec : 56.9 cm/sec Ao max PG TR max P.6 mmHg Ao V2 VTI : 3.6 mmHg PA V2 max: 49.3 cm/sec Ao mean PG PA mean P.50 mmHg PA Accel Time: 0.09 sec GANGA(V,D): 3.0 cm2 LVOT Max Miguelangel : 70.5 cm/sec GANGA(I,D): 3.3 cm sev ratio LV V1 max PG PA V2 mean GANGA indexed to BSA : 33.3 cm/sec (cm^2/m^2): 1.5 LV V1 VTI: 11.5 cmPA pr(Accel) : 39.3 mmHg Reading Physician:06:05 PM
[2017-03-14 21:09] VITALS: BP 130/90; PULSE 99; RESP 20; O2SAT 98
[2017-03-15] VITALS (8 sets, daily range): BP systolic 93–138; BP diastolic 63–88; PULSE 75–141; RESP 20–22; O2SAT 91–96
--- NOTE | 2017-03-15 04:29 | NUR ---
Nausea Pt complained of nausea after taking Dilaudid. Administered Zofran, effective. Continues to have back pain 08/21. Denies cardiac pain or discomfort. Denies SOB. Call light within reach, using appropriately. Hourly rounding in place. Pleasant and cooperative with care.
[2017-03-15 05:54] LABS: BASOPHILS % (AUTO) 0.1 % (0-3); MONOCYTES % (AUTO) 11.6 % (4-12); Mean Corpuscular Hemoglobin 28.6 pg (27.0-35.0); Mean Corpuscular Volume 89.3 fL (81-100); NEUTROPHILS % (AUTO) 81.7 % (40-74); Platelet Count 230 bil/L (150-400)
[2017-03-15 06:24] LABS: Magnesium 2.1 mg/dL (1.6-2.6); Phosphorus 4.3 mg/dL (2.5-4.9)
[2017-03-15] MEDS: HYDROcodone-APAP 5-325 mg Tablet PO PRN (06:48)
[2017-03-15] MEDS: Polyethylene Glycol (PEG) 17 Gm Powder PO SCH (08:05)
[2017-03-15] MEDS: Lidocaine Topical 5% Patch TOPICAL SCH (08:08)
[2017-03-15] MEDS ORDERED: fentaNYL-PF 50 mCg/mL 2 mL Inj IVPUSH PRN (08:45)
--- NOTE | 2017-03-15 10:14 | PCM.PNMED ---
Subjective Date of Service March 15, 2017 Subjective back pain is still not controlled. pt didn't sleep well. very poor appetite, no vomiting, abdominal pain, was nauseous required zofran after dialudid given but felt bloated. having BM with bowel regimen Exam Vital Signs Vital Sign - Last Date Time Temp Pulse Resp B/P Pulse Ox O2 Delivery O2 Flow Rate FiO2 03/15/17 09:43 36.5 100 22 93/63 92 Room Air Intake and Output 03/14/17 03/14/17 03/15/17 Cumulative From/Thru 15:00 23:00 07:00 03/13/17 14:31 - 03/14/17 15:55 Intake Total 2165 ml Output Total 490 ml Balance 1675 ml Intake Oral 880 ml IV Total 1285 ml Output Urine Total 490 ml Exam NAD, comfortably sitting up on the chair no JVD, dryMM, no LAD RRR, nl s1, s2 no mrg CTAB, no w,c S,ND,NT,normoactive BS+, ventral hernia, soft reproducible warm, varicose vein throughout, on MAIK stocking, no edema, pulses 2/2 IVs and Medications Medications Reviewed: Medications were reviewed in detail Lab and Diagnostics Result Diagram: 03/15/17 0535 03/15/17 0535 X-Rays, CTs and MRIs PROCEDURE: X-RAY CHEST, TWO VIEWS ([id number]) INDICATIONS: low blood pressure TECHNIQUE: 2 views of the chest were acquired. COMPARISON: [facility], CR, CHEST 2VW, 05/13/2015, 7:25. [facility], CT, CT CHEST W CON, 12/15/2015, 16:49. FINDINGS: Surgical changes and devices: None. Lungs and pleura: No pleural effusions or pneumothorax. Lungs are clear. Elevation left hemidiaphragm stable compared to prior examination. Mediastinum: Mediastinal contours are normal. Heart size is enlarged. Bones and chest wall: No suspicious bony abnormalities. Soft tissues appear unremarkable. L1 compression fracture is noted which has occurred in the interval since prior examination. IMPRESSION: 1. No acute cardiopulmonary disease process. 2. L1 compression fracture which may be acute. Please correlate with clinical data. Dictated by: Faby Vanegas MD, PhD on 03/13/2017 at 15:17 Approved by: Faby Vanegas MD, PhD on 03/13/2017 at 15:19 PROCEDURE: CT ABDOMEN AND PELVIS WITHOUT CONTRAST ([id number]) INDICATIONS: abd pain, vomiting, low back pain TECHNIQUE: After the administration of oral contrast, 5 mm thick sections acquired from the diaphragms to the symphysis. 5 mm coronal and sagittal reformats were performed. For radiation dose reduction, the following was used: automated exposure control, adjustment of mA and/or kV according to patient size. COMPARISON: [facility], CR, XR LUMBAR SPINE 2 OR 3VW, 09/05/2016, 9:30. [facility], CT, CT ABD PELVIS WO CON, 08/29/2016, 11:34. FINDINGS: Image quality: Excellent. ABDOMEN: Lung bases: Prominent elevation of the left diaphragm likely is related to diaphragmatic paralysis and is similar to the previous study. Mild left basilar scarring versus atelectasis is noted. The imaged portions of the right lung base are unremarkable. The heart is normal in size without a pericardial effusion. Coronary artery atherosclerosis is present. Bilateral gynecomastia is present. Solid organs: The spleen, adrenals, liver, pancreas, and kidneys are similar to the previous exam. Peritoneum and bowel: The stomach, and duodenum, and remainder of the small bowel loops are nondilated. Moderate residual stool seen within the colon. The appendix is well-visualized and normal. There is no bowel obstruction. There is a moderate-sized periumbilical hernia containing several small bowel loops, which is unchanged. The proximal and distal small bowel loops to this hernia are nondilated. No free fluid, loculated fluid collection or free air is evident within the abdomen. Nodes and vessels: No retroperitoneal or mesenteric adenopathy by size criteria. Aorta and inferior vena cava are normal in size. There is aortic atherosclerosis. Bones: There is a new L1 compression deformity identified with approximately 30- 40% height loss that is located centrally with buckling along both the superior and inferior endplates. No additional compression deformities are identified. No displaced fractures are seen. No significant retropulsion is identified. No additional thoracic fractures or lumbar fractures are evident. T7, T8, and T9 left rib fractures are noted, which have a subacute appearance and have not significantly changed. The bone mineralization is diffusely decreased. PELVIS: Genitourinary: Mild prominence of the urinary bladder wall is noted. The prostate is not significantly enlarged. There is no free fluid or loculated fluid collection within the pelvis. No free air is evident. Miscellaneous: There is a small fat containing left inguinal hernia. No pelvic lymphadenopathy is evident. Bones: No suspicious bony lesions. No acute pelvic fractures are seen. There is mild degenerative changes of the bilateral hips, pubis symphysis, and sacroiliac joints. IMPRESSION: 1. New L1 compression fracture without retropulsion. 2. Mild prominence of the urinary bladder wall may be related to incomplete distention. Please correlate clinically to exclude cystitis. 3. Multiple subacute left-sided rib fractures. 4. Osteopenia. 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 -Coronary and aortic atherosclerosis. -Small bowel containing periumbilical hernia without obstruction. -Small fat containing left inguinal hernia. -Mild bilateral gynecomastia. Dictated by: Jadiel Ragland M.D. on 03/13/2017 at 15:51 Approved by: Jadiel Ragland M.D. on 03/13/2017 at 16:03 PROCEDURE: CT BRAIN WITHOUT CONTRAST ([id number]) INDICATIONS: fall, on coumadin TECHNIQUE: Noncontrast 4.5 mm thick angled axial sections acquired from the foramen magnum to the vertex, with coronal reformats. COMPARISON: None. FINDINGS: Image quality: Diagnostic. Brain: There is no acute intra-axial or extra-axial hemorrhage. No extra-axial fluid collection is identified. There is no midline shift or mass effect. The orbits are grossly unremarkable. Atherosclerosis is noted involving the intracranial internal carotid arteries. No large areas of diffusely decreased attenuation are evident within the brain to suggest diffuse cerebral edema. Moderate-sized confluent and focal areas of low-attenuation are present within the periventricular and deep white matter of the supratentorial brain. The ventricles and cortical sulci are moderately prominent. Bones: Calvarium and visualized facial bones are grossly intact. The imaged paranasal sinuses and mastoid air cells are clear. IMPRESSION: 1. No acute intracranial hemorrhage. 2. Moderate parenchymal volume loss and chronic small vessel ischemic changes. Dictated by: Jadiel Ragland M.D. on 03/13/2017 at 15:38 Approved by: Jadiel Ragland M.D. on 03/13/2017 at 15:40 Cardiac Echo Impressions Echocardiogram Report Name: LIZZ ESTRADA JStudy Da te: 05/28/2015 Height: 70 in Hospital Exam Location: [facility] Weight: 261 lb Gender: Male BSA: 2.3 m2 : 1945 Age: 69 yrs BP: 117/79 mmHg Reason For Study: CHF Ordering Physician: Harpal Fernandeserformed By: Carmen Rivera Referring Physician: Dr Sara Barton Interpretation Summary A contrast injection of Definity was performed to improve assessment of LV function. The study quality was technically difficult. The left ventricular ejection fraction is grossly normal. There are no obvious focal wall motion abnormalities noted but poor endocardial definition reduces the sensitivity for the detection of such. There is mild mitral regurgitation. The right ventricular systolic pressure is estimated at 58 mmHg assuming a right atrial pressure of 8 mm Hg. Assessment & Plan Acute, active severely dehydrated state, POA, with increased bun/cr, likely due to poor oral intake, diuretics. UA-hyaline cast, indicating dehydration. no granular cast, -pt clinically stable, no signs of overload with IVF -continue 80cc/hr, NS, judiciously given hx of CHF. -liberal oral intake, JAYCEE, POA, likely prerenal due to poor oral intake, diuretics, nephrotoxins. Renal US unremarkable.CPK WNL. -Bun/Cr improving with IVF -appreciate nephrology input -avoid nephrotoxins, renally adjust meds, i/o, daily wt persisent afib, POA, rate <110, mildly elevated from baseline, likely due to dehydration. INR4, FOBT neg per ED. -coreg decreased from 12.5mg bid to 6.25 bid given BP, hold diuretics-lisinopril /aldactone, indapamide, -hold Cumadin, given no active bleeding, no vitK indicated, would resume upon d/ c L1 compression fx, POA, likely resulted from recent fall, baseline hypercalcemia , PTH level stable. -pain remained uncontrolled today -will try fentanyl 12.5mcg q3d, fentanyl prn, stopped dilaudid due to nausea. -Lidocaine patch, increase tramadol to 100 bid to q8h today -tylenol standing, avoid NSAID mild troponin leak, POA, likely in the setting of severe JAYCEE, stable, no signs of ACS. Chronic, stable Diabetic peripheral neuropathy associated with type 2 diabetes mellitus, continue lisproSS Hypertension, as above, Hypercalcemia, mildly elevated from baseline, resolved with IVF Hyperlipidemia, continue statin, COPD, resume home neb tx GERD, will try Ranitidine prn CHF, chronic, diastolic based on TTE , repeatTTE showed worsening RVSP, pHTN, hold off on diuretics as above. ventral hernia, stable, dispo:likely 1-2more days, PT tomorrow once pain is more controlled diet: Heart healthy dvt ppx: SCD Full code VTE Mechanical Devices: Anti-Embolic stockings Time spent 35min Dimas Lin MD March 15, 2017 10:13
[2017-03-15] MEDS: Insulin LISPRO 300 Unit/3 mL Inj SUBQ SCH ×4 (10:41→21:10)
--- NOTE | 2017-03-15 10:43 | PCM.PNNEPH ---
Subjective Date of Service March 15, 2017 Subjective Kidney function has improved after IVF replacement. He is nauseated. Pain is not controlled. Unable to sleep at night due to back pain. Exam Vital Signs Vital Sign - Last Date Time Temp Pulse Resp B/P Pulse Ox O2 Delivery O2 Flow Rate FiO2 03/15/17 09:43 36.5 100 22 93/63 92 Room Air Intake and Output 03/14/17 03/14/17 03/15/17 Cumulative From/Thru 15:00 23:00 07:00 03/13/17 14:31 - 03/14/17 15:55 Intake Total 2165 ml Output Total 490 ml Balance 1675 ml Intake Oral 880 ml IV Total 1285 ml Output Urine Total 490 ml Exam General appearance: Awake, alert, oriented x3, in moderate distress with moderate pain. HEENT: Atraumatic. Moist mucous membranes. No pallor no jaundice. No JVD. No lymphadenopathy. No thyroid enlargement. Heart: RRR, S1/S2. Lungs: Clear to auscultation bilaterally. No wheezing. No rhonchi. Abdomen is soft. Active bowel sounds. Nontender. Nondistended. No hepatosplenomegaly. Extremities: trace edema. Lab and Diagnostics Result Diagram: 03/15/17 0535 03/15/17 0535 X-Rays, CTs and MRIs PROCEDURE: X-RAY CHEST, TWO VIEWS ([id number]) INDICATIONS: low blood pressure TECHNIQUE: 2 views of the chest were acquired. COMPARISON: [facility], CR, CHEST 2VW, 05/13/2015, 7:25. [facility], CT, CT CHEST W CON, 12/15/2015, 16:49. FINDINGS: Surgical changes and devices: None. Lungs and pleura: No pleural effusions or pneumothorax. Lungs are clear. Elevation left hemidiaphragm stable compared to prior examination. Mediastinum: Mediastinal contours are normal. Heart size is enlarged. Bones and chest wall: No suspicious bony abnormalities. Soft tissues appear unremarkable. L1 compression fracture is noted which has occurred in the interval since prior examination. IMPRESSION: 1. No acute cardiopulmonary disease process. 2. L1 compression fracture which may be acute. Please correlate with clinical data. Dictated by: Faby Vanegas MD, PhD on 03/13/2017 at 15:17 Approved by: Faby Vanegas MD, PhD on 03/13/2017 at 15:19 PROCEDURE: CT ABDOMEN AND PELVIS WITHOUT CONTRAST ([id number]) INDICATIONS: abd pain, vomiting, low back pain TECHNIQUE: After the administration of oral contrast, 5 mm thick sections acquired from the diaphragms to the symphysis. 5 mm coronal and sagittal reformats were performed. For radiation dose reduction, the following was used: automated exposure control, adjustment of mA and/or kV according to patient size. COMPARISON: [facility], CR, XR LUMBAR SPINE 2 OR 3VW, 09/05/2016, 9:30. [facility], CT, CT ABD PELVIS WO CON, 08/29/2016, 11:34. FINDINGS: Image quality: Excellent. ABDOMEN: Lung bases: Prominent elevation of the left diaphragm likely is related to diaphragmatic paralysis and is similar to the previous study. Mild left basilar scarring versus atelectasis is noted. The imaged portions of the right lung base are unremarkable. The heart is normal in size without a pericardial effusion. Coronary artery atherosclerosis is present. Bilateral gynecomastia is present. Solid organs: The spleen, adrenals, liver, pancreas, and kidneys are similar to the previous exam. Peritoneum and bowel: The stomach, and duodenum, and remainder of the small bowel loops are nondilated. Moderate residual stool seen within the colon. The appendix is well-visualized and normal. There is no bowel obstruction. There is a moderate-sized periumbilical hernia containing several small bowel loops, which is unchanged. The proximal and distal small bowel loops to this hernia are nondilated. No free fluid, loculated fluid collection or free air is evident within the abdomen. Nodes and vessels: No retroperitoneal or mesenteric adenopathy by size criteria. Aorta and inferior vena cava are normal in size. There is aortic atherosclerosis. Bones: There is a new L1 compression deformity identified with approximately 30- 40% height loss that is located centrally with buckling along both the superior and inferior endplates. No additional compression deformities are identified. No displaced fractures are seen. No significant retropulsion is identified. No additional thoracic fractures or lumbar fractures are evident. T7, T8, and T9 left rib fractures are noted, which have a subacute appearance and have not significantly changed. The bone mineralization is diffusely decreased. PELVIS: Genitourinary: Mild prominence of the urinary bladder wall is noted. The prostate is not significantly enlarged. There is no free fluid or loculated fluid collection within the pelvis. No free air is evident. Miscellaneous: There is a small fat containing left inguinal hernia. No pelvic lymphadenopathy is evident. Bones: No suspicious bony lesions. No acute pelvic fractures are seen. There is mild degenerative changes of the bilateral hips, pubis symphysis, and sacroiliac joints. IMPRESSION: 1. New L1 compression fracture without retropulsion. 2. Mild prominence of the urinary bladder wall may be related to incomplete distention. Please correlate clinically to exclude cystitis. 3. Multiple subacute left-sided rib fractures. 4. Osteopenia. 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 -Coronary and aortic atherosclerosis. -Small bowel containing periumbilical hernia without obstruction. -Small fat containing left inguinal hernia. -Mild bilateral gynecomastia. Dictated by: Jadiel Ragland M.D. on 03/13/2017 at 15:51 Approved by: Jadiel Ragland M.D. on 03/13/2017 at 16:03 PROCEDURE: CT BRAIN WITHOUT CONTRAST ([id number]) INDICATIONS: fall, on coumadin TECHNIQUE: Noncontrast 4.5 mm thick angled axial sections acquired from the foramen magnum to the vertex, with coronal reformats. COMPARISON: None. FINDINGS: Image quality: Diagnostic. Brain: There is no acute intra-axial or extra-axial hemorrhage. No extra-axial fluid collection is identified. There is no midline shift or mass effect. The orbits are grossly unremarkable. Atherosclerosis is noted involving the intracranial internal carotid arteries. No large areas of diffusely decreased attenuation are evident within the brain to suggest diffuse cerebral edema. Moderate-sized confluent and focal areas of low-attenuation are present within the periventricular and deep white matter of the supratentorial brain. The ventricles and cortical sulci are moderately prominent. Bones: Calvarium and visualized facial bones are grossly intact. The imaged paranasal sinuses and mastoid air cells are clear. IMPRESSION: 1. No acute intracranial hemorrhage. 2. Moderate parenchymal volume loss and chronic small vessel ischemic changes. Dictated by: Jadiel Ragland M.D. on 03/13/2017 at 15:38 Approved by: Jadiel Ragland M.D. on 03/13/2017 at 15:40 Cardiac Echo Impressions Echocardiogram Report Name: LIZZ ESTRADA JStudy Da te: 05/28/2015 Height: 70 in Hospital Exam Location: [facility] Weight: 261 lb Gender: Male BSA: 2.3 m2 : 1945 Age: 69 yrs BP: 117/79 mmHg Reason For Study: CHF Ordering Physician: Harpal Fernandeserformed By: Carmen Rivera Referring Physician: Dr Sara Barton Interpretation Summary A contrast injection of Definity was performed to improve assessment of LV function. The study quality was technically difficult. The left ventricular ejection fraction is grossly normal. There are no obvious focal wall motion abnormalities noted but poor endocardial definition reduces the sensitivity for the detection of such. There is mild mitral regurgitation. The right ventricular systolic pressure is estimated at 58 mmHg assuming a right atrial pressure of 8 mm Hg. Plan Impression 1. Acute kidney injury secondary to prerenal azotemia due to over-diuresis in the setting of poor oral intake. 2. Hypovolemic hyponatremia. 3. Hypercalcemia with underlying disease of hyperparathyroidism, status post parathyroidectomy. 4. Chronic atrial fibrillation with rapid ventricular response. 5. Supratherapeutic INR. 6. Diastolic heart failure. 7. History of type 2 diabetes with neuropathy. 8. Hypertension. Plan: Decrease NS to 60 m/hr to prevent fluid overload. Continue to hold diuretics. Pain controlled. Magnus Stephens MD March 15, 2017 10:43
[2017-03-15] MEDS: Alum-Mag Hydrox-Simeth 30 mL Suspension PO PRN (10:46)
[2017-03-15] MEDS: Pantoprazole 20 mg ER24 Tablet PO SCH ×2 (10:46→21:09)
--- NOTE | 2017-03-15 11:37 | NUR ---
SILVIA signed at 1045AM
--- NOTE | 2017-03-15 17:47 | NUR ---
Pain and Activity Back pain persists and reported 9/10. Using call light appropriately to make needs known. Frequent repositioning when family not around and making lighthearted conversation and laughing with family/visitors in room. Using BR with SBA for toileting needs.
--- NOTE | 2017-03-15 18:18 | NUR ---
GI Bloating early in shift. Maalox admin and no further c/o. Two attempts at BM today were unsuccessful, declined stool softeners and prune juice.
[2017-03-16] VITALS (9 sets, daily range): BP systolic 104–137; BP diastolic 61–92; PULSE 92–101; RESP 14–20; O2SAT 86–97
[2017-03-16] MEDS: Alum-Mag Hydrox-Simeth 30 mL Suspension PO PRN ×2 (03:26→23:38)
--- NOTE | 2017-03-16 03:44 | NUR ---
Pain pt reporting back pain as a 10/10. pt receiving scheduled pain medications, pt received one dose of PRN Fentanyl and was able to sleep after. pt has declined ice/heat at this time. pt states pain level never decreases below a 10/10 even with medications. pt has been observed to be resting in bed after medications administered, pt in no apparent distress. RN observed pt grimace with position changes and verbalize his pain. pt able to verbalize that position changes help with the pain. using call light appropriately to make needs known, placed within reach. hourly rounding in effect.
[2017-03-16] MEDS: Ondansetron 2 mg/mL 2 mL Inj IVPUSH PRN (06:15)
[2017-03-16 06:21] LABS: BASOPHILS % (AUTO) 0.2 % (0-3); EOSINOPHILS % (AUTO) 0.6 % (0-5); MONOCYTES % (AUTO) 9.6 % (4-12); Mean Corpuscular Hemoglobin 28.8 pg (27.0-35.0); Mean Corpuscular Volume 89.1 fL (81-100); NEUTROPHILS % (AUTO) 84.1 % (40-74); Platelet Count 206 bil/L (150-400)
--- NOTE | 2017-03-16 06:26 | NUR ---
Sedation pt A&Ox3, arousable to voice. pt reports feeling "tired", RR 14, pin point pupils, O2 sats were 86% on RA. O2 placed sats increased to 92-93% on 2L O2, made aware, new order for Narcan obtained. pt tolerated well, reported feeling nauseated. PRN Zofran given, pt reports effective for nausea relief. wanda alarm on for safety, hourly rounding in effect. call light within reach.
[2017-03-16 06:54] LABS: Magnesium 2.1 mg/dL (1.6-2.6)
[2017-03-16] MEDS: Pantoprazole 20 mg ER24 Tablet PO SCH ×2 (07:42→20:05)
[2017-03-16] MEDS: Lidocaine Topical 5% Patch TOPICAL SCH (07:43)
[2017-03-16] MEDS: Insulin LISPRO 300 Unit/3 mL Inj SUBQ SCH ×4 (07:43→21:39)
[2017-03-16] MEDS: Polyethylene Glycol (PEG) 17 Gm Powder PO SCH ×2 (07:44→13:57)
[2017-03-16] MEDS ORDERED: Phytonadione (Adult) 10 mg/1 mL Inj PO ONE (07:55)
[2017-03-16 08:17] LABS: INR 4.34 ratio
--- NOTE | 2017-03-16 08:49 | NUR ---
Social Work: Initial Assessment Data: Pt is a 71 y/o male admitted for JAYCEE, suppratheraputic INR. Pt's PCP is Dr Ross, pt's insurance is [employer]. EMR reviewed. Readmit score is 3. [employer] met with pt and spouse at bedside, role explained. Pt states that he and his live in [place] in a single story home where he uses a cane at baseline. Pt reports he drives, has no hx of HH or SNF, no LTC or VA benefits, and is not a caregiver. No d/c planning needs anticipated at this time. [employer] will continue to follow if needs arise. Assessment: Pt who is independent at baseline. Cane at baseline. Plan: Pt will d/c home when medically stable. No d/c planning needs anticipated at this time. [employer] will continue to follow if needs arise. ARLET Bassett Addendum: 03/16/17 at 0851 by RYANN PEREZ Amended: Links added.
--- NOTE | 2017-03-16 09:53 | DRSVH ---
PROCEDURE: X-RAY CHEST ONE VIEW, PORTABLE ([id number]) INDICATIONS: hypoxia TECHNIQUE: One view of the chest was acquired. COMPARISON: [facility], CR, XR CHEST 2VW, 03/13/2017, 14:54. [facility], CR, CHEST 2VW, 06/18/2008, 15:10. [facility], CR, CHEST 2VW, 05/13/2015, 7:25. FINDINGS: Surgical changes and devices: None. Lungs and pleura: No pleural effusions or pneumothorax. Lungs are clear with probable atelectasis a t the left lung base. Severe chronic elevation of the left hemidiaphragm redemonstrated. Mediastinum: Mediastinal contours appear normal. Heart size is enlarged. Bones and chest wall: No suspicious bony lesions. Overlying soft tissues appear unremarkable. IMPRESSION: Severe chronic of the left hemidiaphragm redemonstrated with probable mild atelectasis in volving the left lung base otherwise no definite acute cardiopulmonary process identified. Dictated by: Uriel GUNTER Interpreted: Bebo Munoz MD on 03/16/2017 at 9:49 Transcribed by: MARIANNE on 03/16/2017 at 9:52 Approved by: Helio Munoz M.D. on 03/16/2017 at 10:47
--- NOTE | 2017-03-16 11:00 | DRSVH ---
PROCEDURE: X-RAY KUB ([id number]) INDICATIONS: ileus TECHNIQUE: One view of the abdomen acquired. COMPARISON: [facility], CT, CT ABD PELVIS WO CON, 03/13/2017, 16:19. FINDINGS: Surgical changes and devices: None. Bowel: Gas pattern is nonspecific. There is mild prominence of several small bowel loops within the mid abdomen otherwise the bowel gas pattern appears normal. No pneumatosis bowel wall thickening. N o pneumoperitoneum. Soft tissues: No suspicious abdominal calcifications. Visualized solid organ contours appear normal in size. Bones: No suspicious bony lesions. IMPRESSION: Nonspecific bowel gas pattern. If patient's symptoms persist, recommend repeat imaging or CT. Dictated by: Uriel Trejo RR Interpreted: Bebo Munoz MD on 03/16/2017 at 10:59 Transcribed by: MARIANNE on 03/16/2017 at 10:59 Approved by: Helio Munoz M.D. on 03/16/2017 at 11:54
--- NOTE | 2017-03-16 11:25 | PCM.PNNEPH ---
Subjective Date of Service March 16, 2017 Subjective Hypoxemia noted, required O2 supplement. CXR: Severe chronic of the left hemidiaphragm redemonstrated with probable mild atelectasis involving the left lung base otherwise no definite acute cardiopulmonary process identified. KUB: Bowel: Gas pattern is nonspecific. There is mild prominence of several small bowel loops within the mid abdomen otherwise the bowel gas pattern appears normal. No pneumatosis bowel wall thickening. No pneumoperitoneum. Exam Vital Signs Vital Sign - Last Date Time Temp Pulse Resp B/P Pulse Ox O2 Delivery O2 Flow Rate FiO2 03/16/17 06:11 95 137/92 03/16/17 06:03 94 Nasal Cannula 2.00 03/16/17 04:59 14 03/16/17 04:55 36.9 Intake and Output 03/15/17 03/15/17 03/16/17 Cumulative From/Thru 15:00 23:00 07:00 03/13/17 14:31 - 03/16/17 06:36 Intake Total 1849 ml 825 ml 600 ml 5439 ml Output Total 1000 ml 625 ml 2115 ml Balance 849 ml 200 ml 600 ml 3324 ml Intake Oral 300 ml 825 ml 600 ml 2605 ml IV Total 1549 ml 2834 ml Output Urine Total 1000 ml 625 ml 2115 ml # Voids 5 4 9 # Bowel Movements 0 0 1 1 Exam General appearance: Awake, alert, oriented x3, in NAD. HEENT: Atraumatic. Moist mucous membranes. No pallor no jaundice. No JVD. No lymphadenopathy. No thyroid enlargement. Heart: RRR, S1/S2. Lungs: Clear to auscultation bilaterally. No wheezing. No rhonchi. Abdomen is soft. Active bowel sounds. Mild tenderness on epigastric area, mild distention. Extremities: trace edema. Lab and Diagnostics Result Diagram: 03/16/17 0520 03/16/17 0520 X-Rays, CTs and MRIs PROCEDURE: X-RAY CHEST, TWO VIEWS ([id number]) INDICATIONS: low blood pressure TECHNIQUE: 2 views of the chest were acquired. COMPARISON: [facility], CR, CHEST 2VW, 05/13/2015, 7:25. [facility], CT, CT CHEST W CON, 12/15/2015, 16:49. FINDINGS: Surgical changes and devices: None. Lungs and pleura: No pleural effusions or pneumothorax. Lungs are clear. Elevation left hemidiaphragm stable compared to prior examination. Mediastinum: Mediastinal contours are normal. Heart size is enlarged. Bones and chest wall: No suspicious bony abnormalities. Soft tissues appear unremarkable. L1 compression fracture is noted which has occurred in the interval since prior examination. IMPRESSION: 1. No acute cardiopulmonary disease process. 2. L1 compression fracture which may be acute. Please correlate with clinical data. Dictated by: Faby Vanegas MD, PhD on 03/13/2017 at 15:17 Approved by: Faby Vanegas MD, PhD on 03/13/2017 at 15:19 PROCEDURE: CT ABDOMEN AND PELVIS WITHOUT CONTRAST ([id number]) INDICATIONS: abd pain, vomiting, low back pain TECHNIQUE: After the administration of oral contrast, 5 mm thick sections acquired from the diaphragms to the symphysis. 5 mm coronal and sagittal reformats were performed. For radiation dose reduction, the following was used: automated exposure control, adjustment of mA and/or kV according to patient size. COMPARISON: [facility], CR, XR LUMBAR SPINE 2 OR 3VW, 09/05/2016, 9:30. [facility], CT, CT ABD PELVIS WO CON, 08/29/2016, 11:34. FINDINGS: Image quality: Excellent. ABDOMEN: Lung bases: Prominent elevation of the left diaphragm likely is related to diaphragmatic paralysis and is similar to the previous study. Mild left basilar scarring versus atelectasis is noted. The imaged portions of the right lung base are unremarkable. The heart is normal in size without a pericardial effusion. Coronary artery atherosclerosis is present. Bilateral gynecomastia is present. Solid organs: The spleen, adrenals, liver, pancreas, and kidneys are similar to the previous exam. Peritoneum and bowel: The stomach, and duodenum, and remainder of the small bowel loops are nondilated. Moderate residual stool seen within the colon. The appendix is well-visualized and normal. There is no bowel obstruction. There is a moderate-sized periumbilical hernia containing several small bowel loops, which is unchanged. The proximal and distal small bowel loops to this hernia are nondilated. No free fluid, loculated fluid collection or free air is evident within the abdomen. Nodes and vessels: No retroperitoneal or mesenteric adenopathy by size criteria. Aorta and inferior vena cava are normal in size. There is aortic atherosclerosis. Bones: There is a new L1 compression deformity identified with approximately 30- 40% height loss that is located centrally with buckling along both the superior and inferior endplates. No additional compression deformities are identified. No displaced fractures are seen. No significant retropulsion is identified. No additional thoracic fractures or lumbar fractures are evident. T7, T8, and T9 left rib fractures are noted, which have a subacute appearance and have not significantly changed. The bone mineralization is diffusely decreased. PELVIS: Genitourinary: Mild prominence of the urinary bladder wall is noted. The prostate is not significantly enlarged. There is no free fluid or loculated fluid collection within the pelvis. No free air is evident. Miscellaneous: There is a small fat containing left inguinal hernia. No pelvic lymphadenopathy is evident. Bones: No suspicious bony lesions. No acute pelvic fractures are seen. There is mild degenerative changes of the bilateral hips, pubis symphysis, and sacroiliac joints. IMPRESSION: 1. New L1 compression fracture without retropulsion. 2. Mild prominence of the urinary bladder wall may be related to incomplete distention. Please correlate clinically to exclude cystitis. 3. Multiple subacute left-sided rib fractures. 4. Osteopenia. 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 -Coronary and aortic atherosclerosis. -Small bowel containing periumbilical hernia without obstruction. -Small fat containing left inguinal hernia. -Mild bilateral gynecomastia. Dictated by: Jadiel Ragland M.D. on 03/13/2017 at 15:51 Approved by: Jadiel Ragland M.D. on 03/13/2017 at 16:03 PROCEDURE: CT BRAIN WITHOUT CONTRAST ([id number]) INDICATIONS: fall, on coumadin TECHNIQUE: Noncontrast 4.5 mm thick angled axial sections acquired from the foramen magnum to the vertex, with coronal reformats. COMPARISON: None. FINDINGS: Image quality: Diagnostic. Brain: There is no acute intra-axial or extra-axial hemorrhage. No extra-axial fluid collection is identified. There is no midline shift or mass effect. The orbits are grossly unremarkable. Atherosclerosis is noted involving the intracranial internal carotid arteries. No large areas of diffusely decreased attenuation are evident within the brain to suggest diffuse cerebral edema. Moderate-sized confluent and focal areas of low-attenuation are present within the periventricular and deep white matter of the supratentorial brain. The ventricles and cortical sulci are moderately prominent. Bones: Calvarium and visualized facial bones are grossly intact. The imaged paranasal sinuses and mastoid air cells are clear. IMPRESSION: 1. No acute intracranial hemorrhage. 2. Moderate parenchymal volume loss and chronic small vessel ischemic changes. Dictated by: Jadiel Ragland M.D. on 03/13/2017 at 15:38 Approved by: Jadiel Ragland M.D. on 03/13/2017 at 15:40 Cardiac Echo Impressions Echocardiogram Report Name: LIZZ ESTRADA JStudy Da te: 05/28/2015 Height: 70 in Hospital Exam Location: [facility] Weight: 261 lb Gender: Male BSA: 2.3 m2 : 1945 Age: 69 yrs BP: 117/79 mmHg Reason For Study: CHF Ordering Physician: Harpal Rossformed By: Carmen Rivera Referring Physician: Dr Sara Barton Interpretation Summary A contrast injection of Definity was performed to improve assessment of LV function. The study quality was technically difficult. The left ventricular ejection fraction is grossly normal. There are no obvious focal wall motion abnormalities noted but poor endocardial definition reduces the sensitivity for the detection of such. There is mild mitral regurgitation. The right ventricular systolic pressure is estimated at 58 mmHg assuming a right atrial pressure of 8 mm Hg. Plan Impression 1. Acute kidney injury secondary to prerenal azotemia due to over-diuresis in the setting of poor oral intake. 2. Hypovolemic hyponatremia. 3. Hypercalcemia with underlying disease of hyperparathyroidism, status post parathyroidectomy. 4. Hypoxemia secondary to atelectasis. 5. Suspected ileus from narcotics. 6. Diastolic heart failure. 7. History of type 2 diabetes with neuropathy. 8. Hypertension. 9. Chronic atrial fibrillation. Plan: - d/c IVF. - resume lasix in am. - Start incentive spirometry. - Ambulate as tolerated. - will sign off, please do not hesitate to call with any question. Thank you for the consultation. Magnus Stephens MD March 16, 2017 11:25
--- NOTE | 2017-03-16 11:48 | PCM.PNMED ---
Subjective Date of Service March 16, 2017 Subjective pt was drowsy after additional fentanyl iv given, required narcan overnight pt was hypoxic 86-91% required NC O2 pain is generally better, breathing comfortably still has persistent belching and felt gassy on belly noticed pt did have significant left diaphragmatic paralysis on CT, confirmed on CXR, repeat CXR didn't show any new findings. appetite improved, no BM reported today, started aggressive bowel regimen Exam Vital Signs Vital Sign - Last Date Time Temp Pulse Resp B/P Pulse Ox O2 Delivery O2 Flow Rate FiO2 03/16/17 06:11 95 137/92 03/16/17 06:03 94 Nasal Cannula 2.00 03/16/17 04:59 14 03/16/17 04:55 36.9 Intake and Output 03/15/17 03/15/17 03/16/17 Cumulative From/Thru 15:00 23:00 07:00 03/13/17 14:31 - 03/16/17 06:36 Intake Total 1849 ml 825 ml 600 ml 5439 ml Output Total 1000 ml 625 ml 2115 ml Balance 849 ml 200 ml 600 ml 3324 ml Intake Oral 300 ml 825 ml 600 ml 2605 ml IV Total 1549 ml 2834 ml Output Urine Total 1000 ml 625 ml 2115 ml # Voids 5 4 9 # Bowel Movements 0 0 1 1 Lab and Diagnostics Result Diagram: 03/16/17 0520 03/16/17 0520 X-Rays, CTs and MRIs PROCEDURE: X-RAY CHEST, TWO VIEWS ([id number]) INDICATIONS: low blood pressure TECHNIQUE: 2 views of the chest were acquired. COMPARISON: [facility], CR, CHEST 2VW, 05/13/2015, 7:25. [facility], CT, CT CHEST W CON, 12/15/2015, 16:49. FINDINGS: Surgical changes and devices: None. Lungs and pleura: No pleural effusions or pneumothorax. Lungs are clear. Elevation left hemidiaphragm stable compared to prior examination. Mediastinum: Mediastinal contours are normal. Heart size is enlarged. Bones and chest wall: No suspicious bony abnormalities. Soft tissues appear unremarkable. L1 compression fracture is noted which has occurred in the interval since prior examination. IMPRESSION: 1. No acute cardiopulmonary disease process. 2. L1 compression fracture which may be acute. Please correlate with clinical data. Dictated by: Faby Vanegas MD, PhD on 03/13/2017 at 15:17 Approved by: Faby Vanegas MD, PhD on 03/13/2017 at 15:19 PROCEDURE: CT ABDOMEN AND PELVIS WITHOUT CONTRAST ([id number]) INDICATIONS: abd pain, vomiting, low back pain TECHNIQUE: After the administration of oral contrast, 5 mm thick sections acquired from the diaphragms to the symphysis. 5 mm coronal and sagittal reformats were performed. For radiation dose reduction, the following was used: automated exposure control, adjustment of mA and/or kV according to patient size. COMPARISON: [facility], CR, XR LUMBAR SPINE 2 OR 3VW, 09/05/2016, 9:30. [facility], CT, CT ABD PELVIS WO CON, 08/29/2016, 11:34. FINDINGS: Image quality: Excellent. ABDOMEN: Lung bases: Prominent elevation of the left diaphragm likely is related to diaphragmatic paralysis and is similar to the previous study. Mild left basilar scarring versus atelectasis is noted. The imaged portions of the right lung base are unremarkable. The heart is normal in size without a pericardial effusion. Coronary artery atherosclerosis is present. Bilateral gynecomastia is present. Solid organs: The spleen, adrenals, liver, pancreas, and kidneys are similar to the previous exam. Peritoneum and bowel: The stomach, and duodenum, and remainder of the small bowel loops are nondilated. Moderate residual stool seen within the colon. The appendix is well-visualized and normal. There is no bowel obstruction. There is a moderate-sized periumbilical hernia containing several small bowel loops, which is unchanged. The proximal and distal small bowel loops to this hernia are nondilated. No free fluid, loculated fluid collection or free air is evident within the abdomen. Nodes and vessels: No retroperitoneal or mesenteric adenopathy by size criteria. Aorta and inferior vena cava are normal in size. There is aortic atherosclerosis. Bones: There is a new L1 compression deformity identified with approximately 30- 40% height loss that is located centrally with buckling along both the superior and inferior endplates. No additional compression deformities are identified. No displaced fractures are seen. No significant retropulsion is identified. No additional thoracic fractures or lumbar fractures are evident. T7, T8, and T9 left rib fractures are noted, which have a subacute appearance and have not significantly changed. The bone mineralization is diffusely decreased. PELVIS: Genitourinary: Mild prominence of the urinary bladder wall is noted. The prostate is not significantly enlarged. There is no free fluid or loculated fluid collection within the pelvis. No free air is evident. Miscellaneous: There is a small fat containing left inguinal hernia. No pelvic lymphadenopathy is evident. Bones: No suspicious bony lesions. No acute pelvic fractures are seen. There is mild degenerative changes of the bilateral hips, pubis symphysis, and sacroiliac joints. IMPRESSION: 1. New L1 compression fracture without retropulsion. 2. Mild prominence of the urinary bladder wall may be related to incomplete distention. Please correlate clinically to exclude cystitis. 3. Multiple subacute left-sided rib fractures. 4. Osteopenia. 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 -Coronary and aortic atherosclerosis. -Small bowel containing periumbilical hernia without obstruction. -Small fat containing left inguinal hernia. -Mild bilateral gynecomastia. Dictated by: Jadiel Ragland M.D. on 03/13/2017 at 15:51 Approved by: Jadiel Ragland M.D. on 03/13/2017 at 16:03 PROCEDURE: CT BRAIN WITHOUT CONTRAST ([id number]) INDICATIONS: fall, on coumadin TECHNIQUE: Noncontrast 4.5 mm thick angled axial sections acquired from the foramen magnum to the vertex, with coronal reformats. COMPARISON: None. FINDINGS: Image quality: Diagnostic. Brain: There is no acute intra-axial or extra-axial hemorrhage. No extra-axial fluid collection is identified. There is no midline shift or mass effect. The orbits are grossly unremarkable. Atherosclerosis is noted involving the intracranial internal carotid arteries. No large areas of diffusely decreased attenuation are evident within the brain to suggest diffuse cerebral edema. Moderate-sized confluent and focal areas of low-attenuation are present within the periventricular and deep white matter of the supratentorial brain. The ventricles and cortical sulci are moderately prominent. Bones: Calvarium and visualized facial bones are grossly intact. The imaged paranasal sinuses and mastoid air cells are clear. IMPRESSION: 1. No acute intracranial hemorrhage. 2. Moderate parenchymal volume loss and chronic small vessel ischemic changes. Dictated by: Jadiel Ragland M.D. on 03/13/2017 at 15:38 Approved by: Jadiel Ragland M.D. on 03/13/2017 at 15:40 Cardiac Echo Impressions Echocardiogram Report Name: LIZZ ESTRADA te: 05/28/2015 Height: 70 in Hospital Exam Location: [facility] Weight: 261 lb Gender: Male BSA: 2.3 m2 : 1945 Age: 69 yrs BP: 117/79 mmHg Reason For Study: CHF Ordering Physician: Harpal Rossformed By: Carmen Rivera Referring Physician: Dr Sara Barton Interpretation Summary A contrast injection of Definity was performed to improve assessment of LV function. The study quality was technically difficult. The left ventricular ejection fraction is grossly normal. There are no obvious focal wall motion abnormalities noted but poor endocardial definition reduces the sensitivity for the detection of such. There is mild mitral regurgitation. The right ventricular systolic pressure is estimated at 58 mmHg assuming a right atrial pressure of 8 mm Hg. Assessment & Plan Acute, active severely dehydrated state, POA, with increased bun/cr, likely due to poor oral intake, diuretics. UA-hyaline cast, indicating dehydration. no granular cast, -pt clinically stable, no signs of overload with IVF -s/p IVF for first 1-2days, remained off ivf today. -liberal oral intake, JAYCEE, POA, likely prerenal due to poor oral intake, diuretics, nephrotoxins. Renal US unremarkable.CPK WNL. -Bun/Cr improving with IVF -appreciate nephrology input -avoid nephrotoxins, renally adjust meds, i/o, daily wt persisent afib, POA, rate <110, mildly elevated from baseline, likely due to dehydration. INR4, FOBT neg per ED. -coreg decreased from 12.5mg bid to 6.25 bid given BP, hold diuretics-lisinopril /aldactone, indapamide, -hold Cumadin, given no active bleeding, no vitK indicated, would resume upon d/ c -INR remains >4, [id number] po given today, follow up tomorrow L1 compression fx, POA, likely resulted from recent fall, baseline hypercalcemia , PTH level stable. -pain is better controlled with current regimen. -continue fentanyl 12.5mcg q3d, stop fentanyl prn due to sedation/respiratory depression, stopped dilaudid due to nausea. -Lidocaine patch, increase tramadol to 100 bid to q8h today -tylenol standing, avoid NSAID mild troponin leak, POA, likely in the setting of severe JAYCEE, stable, no signs of ACS. 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 ventral hernia, stable, dispo:likely 1-2more days, appreciate PT diet: Heart healthy dvt ppx: SCD Full code VTE Mechanical Devices: Anti-Embolic stockings Time spent 35min Dimas Lin MD March 16, 2017 11:47
--- NOTE | 2017-03-16 15:41 | NUR ---
took over patient care [id number]
--- NOTE | 2017-03-16 15:50 | NUR ---
Evaluation completed. Please go to "Notes" then click on "Assessments and Notes" (bottom left corner of screen). Then select appropriate discipline tab on top of screen.
--- NOTE | 2017-03-16 19:27 | NUR ---
GI Chest xray for hypoxia overnight showing excessive fecal matter. Providers notified and assessed. Mineral oil enema on orals admin without result. Plan for suppository.
[2017-03-17] MEDS ORDERED: Acetaminophen IV 1,000 MG in IV Premix 1 EACH IV PRN (00:10)
[2017-03-17] MEDS: Alum-Mag Hydrox-Simeth 30 mL Suspension PO PRN (05:52)
--- NOTE | 2017-03-17 05:54 | NUR ---
pain/abdominal discomfort Patient complains of 10/10 lower back pain. PO tylenol and tramadol given. Patient still uncomfortable, hospitalist notified, obtained and gave IV tylenol. Patient offered ice for back pain, he stated some relief. abdomen distended, positive bowel tones, passing gas, complains of indigestion. Given scheduled stool softeners and prune juice. Patient has declines suppository. Maalox given x2. Patient able to report some relief. No bowel movement yet.
[2017-03-17 05:56] LABS: BASOPHILS % (AUTO) 0.2 % (0-3); EOSINOPHILS % (AUTO) 1.5 % (0-5); MONOCYTES % (AUTO) 11.6 % (4-12); Mean Corpuscular Hemoglobin 28.2 pg (27.0-35.0); Mean Corpuscular Volume 88.9 fL (81-100); NEUTROPHILS % (AUTO) 80.7 % (40-74); Platelet Count 220 bil/L (150-400)
[2017-03-17 05:57] VITALS: BP 116/79; PULSE 97; RESP 18; O2SAT 90
[2017-03-17 06:17] LABS: Magnesium 2.1 mg/dL (1.6-2.6)
[2017-03-17] MEDS: Lidocaine Topical 5% Patch TOPICAL SCH (07:35)
[2017-03-17] MEDS: Pantoprazole 20 mg ER24 Tablet PO SCH ×2 (07:35→20:39)
[2017-03-17] MEDS: Insulin LISPRO 300 Unit/3 mL Inj SUBQ SCH ×4 (07:41→22:02)
--- NOTE | 2017-03-17 08:45 | NUR ---
pt is asking for more time to allow his suppository and other bowel medications to take effect. He would also like to nap before getting an enema. This RN asked pt to call when he is ready for enema.
--- NOTE | 2017-03-17 08:47 | PCM.PNMED ---
Subjective Date of Service March 17, 2017 Subjective pt was mildly hypoxic had belching overnight overall back pain is better but continued with movement. PT initiated yesterday no BM yet still with aggressive bowel regimen. denied abdominal pain, ate some breakfast, no n/v Exam Vital Signs Vital Sign - Last Date Time Temp Pulse Resp B/P Pulse Ox O2 Delivery O2 Flow Rate FiO2 03/17/17 05:57 36.5 97 18 116/79 90 Nasal Cannula 1.00 Intake and Output 03/16/17 03/16/17 03/17/17 Cumulative From/Thru 15:00 23:00 07:00 03/13/17 14:31 - 03/17/17 05:27 Intake Total 650 ml 6089 ml Output Total 350 ml 2465 ml Balance 300 ml 3624 ml Intake Oral 650 ml 3255 ml IV Total 2834 ml Output Urine Total 350 ml 2465 ml # Voids 2 11 # Bowel Movements 1 Exam NAD, comfortably sitting up on the chair no JVD, dryMM, no LAD RRR, nl s1, s2 no mrg CTAB, no w,c S,ND,NT,normoactive BS+, ventral hernia, soft reproducible warm, varicose vein throughout, on MAIK stocking, no edema, pulses 2/2 IVs and Medications Medications Reviewed: Medications were reviewed in detail Lab and Diagnostics Result Diagram: 03/17/1751403/17/17514 X-Rays, CTs and MRIs PROCEDURE: X-RAY CHEST, TWO VIEWS ([id number]) INDICATIONS: low blood pressure TECHNIQUE: 2 views of the chest were acquired. COMPARISON: [facility], CR, CHEST 2VW, 05/13/2015, 7:25. [facility], CT, CT CHEST W CON, 12/15/2015, 16:49. FINDINGS: Surgical changes and devices: None. Lungs and pleura: No pleural effusions or pneumothorax. Lungs are clear. Elevation left hemidiaphragm stable compared to prior examination. Mediastinum: Mediastinal contours are normal. Heart size is enlarged. Bones and chest wall: No suspicious bony abnormalities. Soft tissues appear unremarkable. L1 compression fracture is noted which has occurred in the interval since prior examination. IMPRESSION: 1. No acute cardiopulmonary disease process. 2. L1 compression fracture which may be acute. Please correlate with clinical data. Dictated by: Faby Vanegas MD, PhD on 03/13/2017 at 15:17 Approved by: Faby Vanegas MD, PhD on 03/13/2017 at 15:19 PROCEDURE: CT ABDOMEN AND PELVIS WITHOUT CONTRAST ([id number]) INDICATIONS: abd pain, vomiting, low back pain TECHNIQUE: After the administration of oral contrast, 5 mm thick sections acquired from the diaphragms to the symphysis. 5 mm coronal and sagittal reformats were performed. For radiation dose reduction, the following was used: automated exposure control, adjustment of mA and/or kV according to patient size. COMPARISON: [facility], CR, XR LUMBAR SPINE 2 OR 3VW, 09/05/2016, 9:30. [facility], CT, CT ABD PELVIS WO CON, 08/29/2016, 11:34. FINDINGS: Image quality: Excellent. ABDOMEN: Lung bases: Prominent elevation of the left diaphragm likely is related to diaphragmatic paralysis and is similar to the previous study. Mild left basilar scarring versus atelectasis is noted. The imaged portions of the right lung base are unremarkable. The heart is normal in size without a pericardial effusion. Coronary artery atherosclerosis is present. Bilateral gynecomastia is present. Solid organs: The spleen, adrenals, liver, pancreas, and kidneys are similar to the previous exam. Peritoneum and bowel: The stomach, and duodenum, and remainder of the small bowel loops are nondilated. Moderate residual stool seen within the colon. The appendix is well-visualized and normal. There is no bowel obstruction. There is a moderate-sized periumbilical hernia containing several small bowel loops, which is unchanged. The proximal and distal small bowel loops to this hernia are nondilated. No free fluid, loculated fluid collection or free air is evident within the abdomen. Nodes and vessels: No retroperitoneal or mesenteric adenopathy by size criteria. Aorta and inferior vena cava are normal in size. There is aortic atherosclerosis. Bones: There is a new L1 compression deformity identified with approximately 30- 40% height loss that is located centrally with buckling along both the superior and inferior endplates. No additional compression deformities are identified. No displaced fractures are seen. No significant retropulsion is identified. No additional thoracic fractures or lumbar fractures are evident. T7, T8, and T9 left rib fractures are noted, which have a subacute appearance and have not significantly changed. The bone mineralization is diffusely decreased. PELVIS: Genitourinary: Mild prominence of the urinary bladder wall is noted. The prostate is not significantly enlarged. There is no free fluid or loculated fluid collection within the pelvis. No free air is evident. Miscellaneous: There is a small fat containing left inguinal hernia. No pelvic lymphadenopathy is evident. Bones: No suspicious bony lesions. No acute pelvic fractures are seen. There is mild degenerative changes of the bilateral hips, pubis symphysis, and sacroiliac joints. IMPRESSION: 1. New L1 compression fracture without retropulsion. 2. Mild prominence of the urinary bladder wall may be related to incomplete distention. Please correlate clinically to exclude cystitis. 3. Multiple subacute left-sided rib fractures. 4. Osteopenia. 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 -Coronary and aortic atherosclerosis. -Small bowel containing periumbilical hernia without obstruction. -Small fat containing left inguinal hernia. -Mild bilateral gynecomastia. Dictated by: Jadiel Ragland M.D. on 03/13/2017 at 15:51 Approved by: Jadiel Ragland M.D. on 03/13/2017 at 16:03 PROCEDURE: CT BRAIN WITHOUT CONTRAST ([id number]) INDICATIONS: fall, on coumadin TECHNIQUE: Noncontrast 4.5 mm thick angled axial sections acquired from the foramen magnum to the vertex, with coronal reformats. COMPARISON: None. FINDINGS: Image quality: Diagnostic. Brain: There is no acute intra-axial or extra-axial hemorrhage. No extra-axial fluid collection is identified. There is no midline shift or mass effect. The orbits are grossly unremarkable. Atherosclerosis is noted involving the intracranial internal carotid arteries. No large areas of diffusely decreased attenuation are evident within the brain to suggest diffuse cerebral edema. Moderate-sized confluent and focal areas of low-attenuation are present within the periventricular and deep white matter of the supratentorial brain. The ventricles and cortical sulci are moderately prominent. Bones: Calvarium and visualized facial bones are grossly intact. The imaged paranasal sinuses and mastoid air cells are clear. IMPRESSION: 1. No acute intracranial hemorrhage. 2. Moderate parenchymal volume loss and chronic small vessel ischemic changes. Dictated by: Jadiel Ragland M.D. on 03/13/2017 at 15:38 Approved by: Jadiel Ragland M.D. on 03/13/2017 at 15:40 Cardiac Echo Impressions Echocardiogram Report Name: LIZZ ESTRADA Da te: 05/28/2015 Height: 70 in Hospital Exam Location: [facility] Weight: 261 lb Gender: Male BSA: 2.3 m2 : 1945 Age: 69 yrs BP: 117/79 mmHg Reason For Study: CHF Ordering Physician: Harpal Rossformed By: Carmen Rivera Referring Physician: Dr Sara Barton Interpretation Summary A contrast injection of Definity was performed to improve assessment of LV function. The study quality was technically difficult. The left ventricular ejection fraction is grossly normal. There are no obvious focal wall motion abnormalities noted but poor endocardial definition reduces the sensitivity for the detection of such. There is mild mitral regurgitation. The right ventricular systolic pressure is estimated at 58 mmHg assuming a right atrial pressure of 8 mm Hg. Assessment & Plan Acute, active severely dehydrated state, POA, with increased bun/cr, likely due to poor oral intake, diuretics. UA-hyaline cast, indicating dehydration. no granular cast, -pt clinically stable, no signs of overload with IVF -s/p IVF for first 1-2days, remained off ivf today. -liberal oral intake, JAYCEE, POA, likely prerenal due to poor oral intake, diuretics, nephrotoxins. Renal US unremarkable.CPK WNL. -Bun/Cr improving with IVF, oral hydration -appreciate nephrology input -avoid nephrotoxins, renally adjust meds, i/o, daily wt persisent afib, POA, rate <110, mildly elevated from baseline, likely due to dehydration. INR4, FOBT neg per ED. -coreg decreased from 12.5mg bid to 6.25 bid given BP, hold diuretics-lisinopril /aldactone, indapamide, -hold Cumadin, given no active bleeding, no vitK indicated, would resume upon d/ c -INR remains >4, [id number] po given 5/5, follow up INR tomorrow L1 compression fx, POA, likely resulted from recent fall, baseline hypercalcemia , PTH level stable. -pain is better controlled with current regimen. -continue fentanyl 12.5mcg q3d, stop fentanyl prn due to sedation/respiratory depression, stopped dilaudid due to nausea. -Lidocaine patch, increase tramadol to 100 bid to q8h today -tylenol standing, avoid NSAID -continue PT mild troponin leak, POA, likely in the setting of severe JAYCEE, stable, no signs of ACS. 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 -As per , patient is likely needs CTS consult, given this chronicity, left lung unlikely will expand with correction. possible referral to CTS as an outpt -consider NIPPV, likely CPAP at night ileus, POA, no bowel obstruction on abd CT on admission, likely contributed to GI sx -continue metamucil, senna, colace, enema as needed. Chronic, stable Diabetic peripheral neuropathy associated with type 2 diabetes mellitus, continue lisproSS Hypertension, as above, Hypercalcemia, mildly elevated from baseline, resolved with IVF Hyperlipidemia, continue statin, COPD, resume home neb tx GERD, will try Ranitidine prn CHF, chronic, diastolic based on TTE , repeatTTE showed worsening RVSP, pHTN, hold off on diuretics as above. ventral hernia, stable, dispo:likely 1-2more days, appreciate PT diet: Heart healthy dvt ppx: SCD Full code VTE Mechanical Devices: Anti-Embolic stockings Time spent 35min Dimas Lin MD March 17, 2017 08:47
--- NOTE | 2017-03-17 11:04 | NUR ---
[facility] signed
[2017-03-17 13:19] VITALS: BP 120/73; PULSE 85; RESP 18; O2SAT 92
--- NOTE | 2017-03-17 15:38 | NUR ---
SW - Continued Discharge Planning Data: Pt is on day 4 of hospitalization for JAYCEE, supratheraputic INR, Elevated trop. EMR reviewed. Per morning rounds pt is not medically ready to discharge and hasn't yet had a bowel movement. PT has seen the pt and is recommending HH and FWW. SW met with pt to discuss PT recommendations. 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 Pt further declines any outpatient PT services. Pt likely to discharge home via family when medically stable. No further needs assessed. SW will continue to follow. Assessment: Pt who is independent at baseline Plan: Pt likely to discharge home via POV when medically stable. Pt has FWW, declines HH. No further needs assessed. SW will continue to follow. ARLET Ellis
[2017-03-17 20:31] VITALS: BP 123/85; PULSE 99; RESP 18; O2SAT 93
[2017-03-18 05:18] VITALS: BP 156/85; PULSE 109; RESP 20; O2SAT 94
--- NOTE | 2017-03-18 06:18 | NUR ---
Confusion/BM: at start of NOC shift pt found to be dressed in his own clothes, and had pulled out IV. He stated that he was going home, via Taxi. pt persistent that he was going to leave. walked with pt in the hallway to the front windows. called, and here to be with pt overnight. Pt with total of 3 BMs this shift. pt continues to c/o back pain, however he did not want to be woke up for tramadol of Tylenol, pt will call as needed for pain meds. at bedside, providing care. will continue to monitor.
[2017-03-18 06:26] LABS: BASOPHILS % (AUTO) 0.2 % (0-3); EOSINOPHILS % (AUTO) 1.2 % (0-5); MONOCYTES % (AUTO) 11.7 % (4-12); Mean Corpuscular Hemoglobin 29.4 pg (27.0-35.0); NEUTROPHILS % (AUTO) 82.6 % (40-74); Platelet Count 223 bil/L (150-400)
[2017-03-18 06:55] LABS: Magnesium 2.1 mg/dL (1.6-2.6); Phosphorus 2.9 mg/dL (2.5-4.9)
[2017-03-18] MEDS: Lidocaine Topical 5% Patch TOPICAL SCH (07:42)
[2017-03-18] MEDS: Pantoprazole 20 mg ER24 Tablet PO SCH (07:42)
[2017-03-18] MEDS: Polyethylene Glycol (PEG) 17 Gm Powder PO SCH (07:42)
[2017-03-18] MEDS: Insulin LISPRO 300 Unit/3 mL Inj SUBQ SCH (07:46)
--- NOTE | 2017-03-18 08:43 | NUR ---
fentanyl patch patch applied to anterior R shoulder area.
[2017-03-18] MEDS ORDERED: FURO40TA4 PO (09:32)
[2017-03-18] MEDS ORDERED: Fentanyl TOPICAL ×2 (09:32→14:01)
[2017-03-18] MEDS ORDERED: TRAM-14 PO (09:32)
[2017-03-18] MEDS ORDERED: LIDO700A6 TOPICAL (09:32)
[2017-03-18] MEDS ORDERED: Acetaminophen PO (09:32)
[2017-03-18 10:13] LABS: INR 1.12 ratio
[2017-03-18] MEDS ORDERED: SENN-133 PO (10:48)
[2017-03-18] MEDS ORDERED: POLY17PO6 PO (10:48)
[2017-03-18] MEDS ORDERED: PSYL3.4P5 PO (10:48)
[2017-03-18] MEDS ORDERED: Docusate Sodium PO (10:48)
--- NOTE | 2017-03-18 11:05 | NUR ---
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 pt states that his back is still painful but denies ant other distress. belongings gathered and bagged, pt using the bathroom before he leaves. pt will be transferred to private car to return to private home via W/C by IVY PARNELL.
--- NOTE | 2017-03-18 14:04 | NUR ---
SW - Readiness for Discharge/Discharge Data: Pt is on day 5 of hospitalization for JAYCEE, supratheraputic INR, Elevated trop. EMR reviewed. Pt has had bowel movement and is now medically ready for discharge, is up independent in room. PT has seen the pt and is recommending HH and FWW. 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 Pt further declines any outpatient PT services. Pt likely to discharge home via family. No further needs assessed. Assessment: Pt who is independent at baseline Plan: Pt likely to discharge home via POV when medically stable. Pt has FWW, declines HH. No further needs assessed. ARLET Ellis
--- NOTE | 2017-03-20 09:50 | PCM.DC.MED ---
Discharge Summary Date of Service March 18, 2017 Dates of Hospitalization Date of Hospital Admission March 13, 2017 at 18:02 Date of Discharge: March 18, 2017 Providers: Admitting Physician: Dimas Polanco MD Primary Care Physician: Norberto Ross DO Attending Physician: Dimas Polanco MD Diagnosis at Time of Discharge Diagnosis at Time of Discharge Acute dx severely dehydrated state, due to poor oral intake, diuretics. JAYCEE, likely prerenal due to poor oral intake, diuretics, nephrotoxins. persisent afib, L1 compression fx, likely resulted from recent fall, baseline hypercalcemia, mild troponin leak, likely in the setting of severe JAYCEE chronic unliateral diaphragmatic paralysis, Ileus, Chronic dx Diabetic peripheral neuropathy associated with type 2 diabetes mellitus, Hypertension, Hypercalcemia, Hyperlipidemia, COPD, GERD, CHF, chronic, diastolic ventral hernia, Procedures XRay, CTs & MRIs PROCEDURE: X-RAY CHEST, TWO VIEWS ([id number]) INDICATIONS: low blood pressure TECHNIQUE: 2 views of the chest were acquired. COMPARISON: [facility], CR, CHEST 2VW, 05/13/2015, 7:25. [facility], CT, CT CHEST W CON, 12/15/2015, 16:49. FINDINGS: Surgical changes and devices: None. Lungs and pleura: No pleural effusions or pneumothorax. Lungs are clear. Elevation left hemidiaphragm stable compared to prior examination. Mediastinum: Mediastinal contours are normal. Heart size is enlarged. Bones and chest wall: No suspicious bony abnormalities. Soft tissues appear unremarkable. L1 compression fracture is noted which has occurred in the interval since prior examination. IMPRESSION: 1. No acute cardiopulmonary disease process. 2. L1 compression fracture which may be acute. Please correlate with clinical data. Dictated by: Faby Vanegas MD, PhD on 03/13/2017 at 15:17 Approved by: Faby Vanegas MD, PhD on 03/13/2017 at 15:19 PROCEDURE: CT ABDOMEN AND PELVIS WITHOUT CONTRAST ([id number]) INDICATIONS: abd pain, vomiting, low back pain TECHNIQUE: After the administration of oral contrast, 5 mm thick sections acquired from the diaphragms to the symphysis. 5 mm coronal and sagittal reformats were performed. For radiation dose reduction, the following was used: automated exposure control, adjustment of mA and/or kV according to patient size. COMPARISON: [facility], CR, XR LUMBAR SPINE 2 OR 3VW, 09/05/2016, 9:30. [facility], CT, CT ABD PELVIS WO CON, 08/29/2016, 11:34. FINDINGS: Image quality: Excellent. ABDOMEN: Lung bases: Prominent elevation of the left diaphragm likely is related to diaphragmatic paralysis and is similar to the previous study. Mild left basilar scarring versus atelectasis is noted. The imaged portions of the right lung base are unremarkable. The heart is normal in size without a pericardial effusion. Coronary artery atherosclerosis is present. Bilateral gynecomastia is present. Solid organs: The spleen, adrenals, liver, pancreas, and kidneys are similar to the previous exam. Peritoneum and bowel: The stomach, and duodenum, and remainder of the small bowel loops are nondilated. Moderate residual stool seen within the colon. The appendix is well-visualized and normal. There is no bowel obstruction. There is a moderate-sized periumbilical hernia containing several small bowel loops, which is unchanged. The proximal and distal small bowel loops to this hernia are nondilated. No free fluid, loculated fluid collection or free air is evident within the abdomen. Nodes and vessels: No retroperitoneal or mesenteric adenopathy by size criteria. Aorta and inferior vena cava are normal in size. There is aortic atherosclerosis. Bones: There is a new L1 compression deformity identified with approximately 30- 40% height loss that is located centrally with buckling along both the superior and inferior endplates. No additional compression deformities are identified. No displaced fractures are seen. No significant retropulsion is identified. No additional thoracic fractures or lumbar fractures are evident. T7, T8, and T9 left rib fractures are noted, which have a subacute appearance and have not significantly changed. The bone mineralization is diffusely decreased. PELVIS: Genitourinary: Mild prominence of the urinary bladder wall is noted. The prostate is not significantly enlarged. There is no free fluid or loculated fluid collection within the pelvis. No free air is evident. Miscellaneous: There is a small fat containing left inguinal hernia. No pelvic lymphadenopathy is evident. Bones: No suspicious bony lesions. No acute pelvic fractures are seen. There is mild degenerative changes of the bilateral hips, pubis symphysis, and sacroiliac joints. IMPRESSION: 1. New L1 compression fracture without retropulsion. 2. Mild prominence of the urinary bladder wall may be related to incomplete distention. Please correlate clinically to exclude cystitis. 3. Multiple subacute left-sided rib fractures. 4. Osteopenia. 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 -Coronary and aortic atherosclerosis. -Small bowel containing periumbilical hernia without obstruction. -Small fat containing left inguinal hernia. -Mild bilateral gynecomastia. Dictated by: Jadiel Ragland M.D. on 03/13/2017 at 15:51 Approved by: Jadiel Ragland M.D. on 03/13/2017 at 16:03 PROCEDURE: CT BRAIN WITHOUT CONTRAST ([id number]) INDICATIONS: fall, on coumadin TECHNIQUE: Noncontrast 4.5 mm thick angled axial sections acquired from the foramen magnum to the vertex, with coronal reformats. COMPARISON: None. FINDINGS: Image quality: Diagnostic. Brain: There is no acute intra-axial or extra-axial hemorrhage. No extra-axial fluid collection is identified. There is no midline shift or mass effect. The orbits are grossly unremarkable. Atherosclerosis is noted involving the intracranial internal carotid arteries. No large areas of diffusely decreased attenuation are evident within the brain to suggest diffuse cerebral edema. Moderate-sized confluent and focal areas of low-attenuation are present within the periventricular and deep white matter of the supratentorial brain. The ventricles and cortical sulci are moderately prominent. Bones: Calvarium and visualized facial bones are grossly intact. The imaged paranasal sinuses and mastoid air cells are clear. IMPRESSION: 1. No acute intracranial hemorrhage. 2. Moderate parenchymal volume loss and chronic small vessel ischemic changes. Dictated by: Jadiel Ragland M.D. on 03/13/2017 at 15:38 Approved by: Jadiel Ragland M.D. on 03/13/2017 at 15:40 Cardiac Echo Impression Echocardiogram Report Name: LIZZ ESTRADA Jf Da te: 05/28/2015 Height: 70 in Hospital Exam Location: [facility] Weight: 261 lb Gender: Male BSA: 2.3 m2 : 1945 Age: 69 yrs BP: 117/79 mmHg Reason For Study: CHF Ordering Physician: Harpal Rossformed By: Carmen Rivera Referring Physician: Dr Sara Barton Interpretation Summary A contrast injection of Definity was performed to improve assessment of LV function. The study quality was technically difficult. The left ventricular ejection fraction is grossly normal. There are no obvious focal wall motion abnormalities noted but poor endocardial definition reduces the sensitivity for the detection of such. There is mild mitral regurgitation. The right ventricular systolic pressure is estimated at 58 mmHg assuming a right atrial pressure of 8 mm Hg. Brief History HPI obtained on 03/13 71-year-old male with diabetes, hypertension, hypercalcemia, COPD, GERD, afib on coumadin sent from PCP with hypotension, tachycardia. 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 patient went to clinic today. noticed BP86 /56, HR101, sent to ED for further eval. pt has baseline dementia, most of hx was obtained by at the bedside. As per , pt had fall due to weakness on LE when he got out of bed, since then, his chronic back pain got really worse , he has been declining functionally with very poor appetite, decreased oral intake, intermittent nausea, no vomiting, pt took a lot of Tums which made him gassy. but denied having abdominal pain, having soft stools at baseline, no constipation or diarrhea. for the past 2days, pt was not able to eat barely anything. As per , pt has been complaint to all his meds including coumadin , all of diuretics. In ED. VS 92/65, 102, afebrile, 95% on RA, labs showed mild leukocytosis, hyponatremia, markedly elevated BUN 84, cr1.86, mild troponemia, [id number]. CXR /abd pelvis CT/CTH were unremarkable. pt was given protonix, norco, 500cc NS. EKG showed afib During the interview, pt denied any SOB, chest pain, palpitation, cough, sputum , fever, chills, n/v/c/d, sick contacts. Hospital Course Acute dx severely dehydrated state, POA, with increased bun/cr, likely due to poor oral intake, diuretics. UA-hyaline cast, indicating dehydration. no granular cast. Pt had persistent poor appetite with beltching. It was thought be multifactorial causing poor appetite. likely due to ileus, JAYCEE, severe pain from back pain. Appetite improved greatly with supportive tx. pt received IVF for first 1-2days, remained off ivf, encouraged liberal oral intake.Pt was able to take po and tolerated diet upon d/c JAYCEE, likely prerenal due to poor oral intake, diuretics, nephrotoxins. Renal US unremarkable.CPK WNL. Nephrology was consulted, recommended IVF. nephrotoxins- lasix, indapamide, lisinopril were stopped. Cr trended down to 1.09 upon d/c( from 1.86 on adm). Lasix were resumed with decreased dose 40mg bid from 80mg bid. pt tolerated well. persisent afib, rate <110, mildly elevated from baseline, likely due to dehydration. FOBT was neg per ED despite INR>4, pt didn't have any signs of active bleeding throughout hospitalization. Given INR remained>4 with holding Coumadin, pt received [id number] po, INR trended down to 1.12, plan is to resume Coumadin home dose. Coreg was decreased from 12.5mg bid to 6.25 bid given initially low BP, but as BP trends grdually better, heart rate being 90s, plan is to increase to home dose upon d/c. L1 compression fx, POA, likely resulted from recent fall, baseline hypercalcemia , PTH level stable. pt was tried fentanyl 12.5mcg q3d, responded well, pt received intermittent fentanyl prn iv 25mcg, however stopped as pt experienced sedation/respiratory depression, dilaudid was also stopped as pt had nausea. Lidocaine patch was also tried but showed minimal effect. Tramadol seemed working well increased upto 100 bid to q8h. decreased to 50mg q12h as pain was generally better controlled. Pt was started on standing tylenol, received PT. Patient was able to ambulate with minimal pain, deemed safe for d/c to home. mild troponin leak, likely in the setting of severe JAYCEE, resolved, no signs of ACS. 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 As per , gen surg, patient likely needs CTS consult for correction, However, given this chronicity, left lung unlikely will expand even with surgery. Patient was encouraged to get referral to CTS as an outpt by PCP. Initially this dx contributed to intermittent hypoxia at night and persistent belching and abdominal discomfort. However, symptoms were better controlled with improvement of [id number], thought to be unlikely the case. Ileus, POA, no bowel obstruction on abd CT on admission, this was likely contributed to GI sx. Patient was tried aggressive bowel regimen, metamucil, senna, colace, enema as needed. eventually made good BM, plan to continue given newly Rxed opioids for back pain. Chronic dx Diabetic peripheral neuropathy associated with type 2 diabetes mellitus, continued lisproSS Hypertension, as above, Hypercalcemia, mildly elevated from baseline, resolved with IVF Hyperlipidemia, continued statin, COPD, resumed home neb tx GERD, Ranitidine prn CHF, chronic, diastolic based on TTE , repeatTTE showed worsening RVSP, pHTN, held diuretics but resumed as above, euvolemic upon d/c. ventral hernia, stable, Exam Vital Signs (Last) Date Time Temp Pulse Resp B/P Pulse Ox O2 Delivery O2 Flow Rate FiO2 03/18/17 05:18 37.0 109 20 156/85 94 Room Air 03/17/17 05:57 1.00 Exam NAD, comfortably sitting up on the chair no JVD, MMM, no LAD RRR, nl s1, s2 no mrg CTAB, no w,c S,ND,NT,normoactive BS+, ventral hernia, soft reproducible warm, varicose vein throughout, on MAIK stocking, no edema, pulses 2/2 Test 03/13/17 15:15 03/14/17 05:35 03/15/17 05:35 03/16/17 05:20 Pro-B-Type Natriuretic Peptide 963.2pg/mL (0-376) Hold Santa Top Tube Received (Received) Urine Color Yellow (YELLOW) Urine Appearance Clear (CLEAR,HAZY) Urine pH 6.0 (5.0-8.0) Urine Specific [place] 1.014 (1.003-1.035) Urine Protein Negativemg/dL (NEG,TRACE) Urine Glucose (UA) 500mg/dL (NEGATIVE) Urine Ketones Negativemg/dL (NEGATIVE) Urine Occult Blood Negative (NEGATIVE) Urine Nitrite Negative (NEGATIVE) Urine Bilirubin Negative (NEGATIVE) Urine Urobilinogen Normalmg/dL (NORMAL) Urine Leukocyte Esterase Negative (NEGATIVE) Urine RBC 0-2/hpf (0-2) Urine WBC 0-5/hpf (0-5) Urine Epithelial Cells Occasional/hpf (NONE-MOD) Urine Crystals None seen (NONE SEEN) Urine Bacteria None/hpf (NONE-FEW) Urine Hyaline Casts 03/31/lpf (NONE) Urine Granular Casts None seen (NONE SEEN) Urine Waxy Casts None seen (NONE SEEN) Urine Red Blood Cell Casts None seen (NONE SEEN) Urine White Blood Cell Casts None seen (NONE SEEN) Urine Mucus None seen (None Seen) Urine Trichomonas None seen (NONE SEEN) Urine Yeast None (NONE SEEN) Urinalysis Comment None Urine Culture Reflexed Not indicated Urine Random Creatinine 77mg/dL (22-328) Urine Random Sodium 38mEq/L Urine Urea Nitrogen 564mg/dL (Not Estab.) Total Creatine Kinase 180U/L (21-232) Troponin T 0.090ug/L (0.0-0.011) Osmolality 310 (275-300) Parathyroid Hormone (Intact) 53pg/mL (15-65) Lipase 31U/L (13-60) Test 03/18/17 06:10 03/18/17 09:50 White Blood Count 10.9th/mm3 (3.8-10.1) Red Blood Count 4.36mil/mm3 (4.40-5.80) Hemoglobin 12.8g/dL (13.8-17.2) Hematocrit 38.8% (41.0-50.0) Mean Corpuscular Volume 89.0fL (81-100) Mean Corpuscular Hemoglobin 29.4pg (27.0-35.0) Mean Corpuscular Hemoglobin Concent 33.0% (32.0-37.0) Red Cell Distribution Width 14.4% (12.3-15.4) Platelet Count 223bil/L (150-400) Neutrophils (%) (Auto) 82.6% (40-74) Lymphocytes (%) (Auto) 4.1% (14-46) Monocytes (%) (Auto) 11.7% (4-12) Eosinophils (%) (Auto) 1.2% (0-5) Basophils (%) (Auto) 0.2% (0-3) Sodium Level 137mEq/L (134-144) Potassium Level 4.3mEq/L (3.5-5.2) Chloride Level 89mEq/L (97-108) Carbon Dioxide Level 33mmol/L (18-29) Blood Urea Nitrogen 25mg/dL (8-27) Creatinine 1.09mg/dL (0.76-1.27) Estimat Glomerular Filtration Rate 70mL/min (>59) Glucose Level 211mg/dL (60-99) Calcium Level 9.8mg/dL (8.5-10.1) Phosphorus Level 2.9mg/dL (2.5-4.9) Magnesium Level 2.1mg/dL (1.6-2.6) Total Bilirubin 0.8mg/dL (0.0-1.2) Aspartate Amino Transf (AST/SGOT) 20U/L (0-50) Alanine Aminotransferase (ALT/SGPT) 15U/L (0-44) Alkaline Phosphatase 80U/L (25-160) Total Protein 6.9g/dL (6.4-8.4) Albumin 4.1g/dL (3.4-5.0) Prothrombin Time 12.0sec (8.1-12.5) Prothromb Time International Ratio 1.12ratio Discharge Medications Discharge Medications ([Acetaminophen]) 325 MG TABLET 650 MG PO Q6H Prescribed by: DIMAS POLANCO MD ([Fentanyl]) 12mcg PATCH 1 PATCH TOPICAL Q3D Prescribed by: DIMAS POLANCO MD Carvedilol (Carvedilol) 12.5 Mg Tablet 12.5 MG PO BID (Reported) Cyanocobalamin (Vitamin B-12) (Vitamin B-12) 1,000 Mcg Tablet 1,000 MCG PO DAILY (Reported) Furosemide (Furosemide) 40 Mg Tablet 40 MG PO 0830,1630 Prescribed by: DIMAS POLANCO MD Insulin Glargine (Lantus U100 Insulin Vial) 100 Unit/Ml Vial 60 UNIT SUBQ HS ( Reported) Insulin Lispro (Humalog Kwikpen) 200 Unit/Ml (3 Ml) Insuln.pen 1 UNIT SQ TIDAC ( Reported) SLIDING SCALE Lidocaine (Lidoderm) 700 Mg Adh..patch 1 PATCH TOPICAL DAILY Prescribed by: DIMAS POLANCO MD Polyethylene Glycol 3350 (Miralax) 17 Gm Powd.pack 17 GM PO DAILY Prescribed by: DIMAS POLANCO MD Pravastatin (Pravastatin) 40 Mg Tablet 40 MG PO DAILY (Reported) Psyllium Husk/Aspartame (Metamucil Fiber Singles Packet) 3.4 Gm Powd.pack 1 PACKET PO TIDWM Prescribed by: DIMAS POLANCO MD Sennosides (Senna) 8.6 Mg Tablet 8.6 MG PO HS Prescribed by: DIMAS POLANCO MD Tramadol (Ultram) 50 Mg Tablet 50 MG PO Q12H Prescribed by: DIMAS POLANCO MD Vit C/Vit E/Lutein/Min/Ursa-3 (Ocuvite Softgel) 1 Each Capsule 1 EACH PO DAILY (Reported) Warfarin Sodium (Warfarin Sodium) 7.5 Mg Tablet 7.5 MG PO SUN,WED,FRI (Reported ) Warfarin Sodium (Warfarin Sodium) 5 Mg Tablet 5 MG PO MON,TUE,THUR,SAT (Reported ) As needed ([Docusate Sodium]) 250 MG CAPSULE 250 MG PO BID PRN PRN For Constipation Prescribed by: DIMAS POLANCO MD Acetaminophen (Acetaminophen) 500 Mg Tablet 1,000 MG PO Q6H PRN PRN For Pain ( Reported) Followup Plan Disposition: home Time spent 65min Dimas Polanco MD March 20, 2017 09:50
--- NOTE | 2017-03-20 09:55 | PCM.DIMED ---
Discharge Instructions Date of Service March 18, 2017 Dates of Hospitalization March 13, 2017 at 18:02 Discharge Diagnosis Discharge Diagnosis severely dehydration from poor appetite JAYCEE, prerenal persisent afib L1 compression fx mild troponin leak chronic unliateral diaphragmatic paralysis ileus Medication Instructions Please take Furosemide 40mg twice a day, rather than 80mg twice a day Use Lidocaine patch 1patch daily until your pain subsides take Tramadol 50mg once or twice a day for severe pain take tylenol 650mg four times per day for your pain use fentanyl patch, change every three days for pain Use Colace, Senna, Miralax, Metamucil to prevent constipation. You can titrate these regimen based on your stools Diet No restrictions, Low fat, Low Sodium Activity No restrictions Patient Instructions Your were hospitalized with severe acute kidney injury, back pain with compression fracture. your condition improve greatly. Please follow up with your primary doctor in 2weeks Follow-up plan Please follow up with your primary doctor in 2weeks Follow-up with PCP in: 2 weeks Dimas Lin MD March 18, 2017 10:47
== END 2017-03-18 11:12 | disposition home or self-care (01) | DRG 683 ==
LOC: SED 14:22 → MPC 18:02
PROVIDERS: ADMIT Internal Medicine; ATTEND Internal Medicine
DX: N17.9 Acute kidney failure, unspecified (principal); I50.32 Chronic diastolic (congestive) heart failure; S32.019A Unspecified fracture of first lumbar vertebra, initial encounter for closed fracture; I48.2 Chronic atrial fibrillation; K21.9 Gastro-esophageal reflux disease without esophagitis; K44.9 Diaphragmatic hernia without obstruction or gangrene; E11.42 Type 2 diabetes mellitus with diabetic polyneuropathy; F03.90 Unspecified dementia, unspecified severity, without behavioral disturbance, psychotic disturbance, mood disturbance, and anxiety; I34.0 Nonrheumatic mitral (valve) insufficiency; I07.1 Rheumatic tricuspid insufficiency; R29.6 Repeated falls; E86.0 Dehydration; J98.6 Disorders of diaphragm; W06.XXXA Fall from bed, initial encounter; J44.9 Chronic obstructive pulmonary disease, unspecified; I27.2 Other secondary pulmonary hypertension; Z79.01 Long term (current) use of anticoagulants; Z79.4 Long term (current) use of insulin; Z87.891 Personal history of nicotine dependence; Y92.009 Unspecified place in unspecified non-institutional (private) residence as the place of occurrence of the external cause

== ENCOUNTER 2017-06-14 12:24 | Day surgery (SDC) | payer MEDICARE ==
[~2017-06-14] VITALS: Ht 175.3 cm; Wt 94.0 kg
[~2017-06-14 12:24] MED LIST changes: -ALLER-TEC PO; +Acetaminophen PO; +CARV25TA2 PO; -CARV6.252 PO; -CHOND PO; +DILT120C52 PO; +DONE5TAB30 PO; +Docusate Sodium PO; +FENT1PAT6 TRANSDERM; +FEXO-43 PO; -FRSM80T PO; +FURO40TA4 PO; +Fentanyl TOPICAL; -GLUCOS PO; -INDA2.5T2 PO; -INSU100I13 SUBQ; +INSU100V7 SUBQ; +LIDO700A6 TOPICAL; -LISI10TA PO; -LOVENOX BRIDGING; +PANT40TA3 PO; +POLY17PO6 PO; +PSYL3.4P5 PO; +SENN-133 PO; +TRAM-14 PO; +WARF5TAB7 PO
[2017-06-14] MEDS ORDERED: Propofol 10,000 mCg/mL 20 mL Inj ONE (12:25)
[2017-06-14 12:48] VITALS: BP 123/77; PULSE 92; RESP 16; O2SAT 93
[2017-06-14] MEDS ORDERED: NA P OP (12:55)
--- NOTE | 2017-06-14 13:38 | PCM.HPANE ---
Patient Data Date of Service: Jun 14, 2017 (2407) Surgeon Admitting Provider: Attending Provider:Dylon Morales MD Primary Care Physician:Angel Duckworth DO Other Provider:Angel Webb Anesthesia Reason for Visit Postprandial Epigastric Pain Ht/WT & BMI Height (Feet): 5 Height (Inches): 9 Weight (Kilograms): 94 Body Mass Index 30.00 Allergies Coded Allergies: atorvastatin (Verified Adverse Reaction, Severe, myalgias, 06/12/17) lactose (Verified Adverse Reaction, Mild, "gassy", 06/12/17) Past Anesthesia History Anesthesia History: Denies:: Abnormal Airway, Anesthesia Reactions, Difficult Intubation, Fam Anesthesia Reaction, Fam Malignant Hypertherm, Malignant Hyperthermia Diabetes History Hx Diabetes?: Yes Type of Diabetes: Type II Glycemic Control: Insulin Dependent Current Bedside Blood Glucose: 189 MRSA MRSA: No Medications Blood Thinner: Coumadin Last Dose Blood Thinner: Jun 11, 2017 Home Meds Incl Beta Peter: Yes Date Beta Peter Taken: Jun 14, 2017 Time Beta Peter Taken: 0430 Active Scripts Polyethylene Glycol 3350 (Miralax)17 Gm Powd.pack17 Gm PO DAILY 30 Days Prov:Dimas Lin MD 03/18/17 Psyllium Husk/Aspartame (Metamucil Fiber Singles Packet)3.4 Gm Powd.pack1 Packet PO TIDWM 30 Days Prov:Dimas Lin MD 03/18/17 Furosemide 40 Mg Zewxuu62 Mg PO 0830,1630 30 Days Prov:Dimas Lin MD 03/18/17 Reported Medications Na Phos,M-B/Sodium Chloride (Ocusoft Irrigating Oph Soln)30 Ml Drops30 Ml OP 06/14/[address] 40 Mg Tablet.dr40 Mg PO DAILY Ref 0 06/12/17 Donepezil 5 Mg Tablet5 Mg PO HS Ref 0 06/12/17 Carvedilol 25 Mg Qpdsjd08 Mg PO BID Ref 0 06/12/17 Warfarin Sodium 5 Mg Tablet5 Mg PO MON,SUN,,SUN 30 Days Ref 0 03/13/17 Warfarin Sodium 7.5 Mg Tablet7.5 Mg PO SUN,SUN,SUN 30 Days Ref 0 03/13/17 Insulin Glargine (Lantus U100 Insulin Vial)100 Unit/Ml Vial60 Unit SUBQ HS #1 VIAL Ref 0 03/13/17 Insulin Lispro (Humalog Kwikpen)200 Unit/Ml (3 Ml) Insuln.pen1 Unit SQ TIDAC SLIDING SCALE 01/31/16 Cyanocobalamin (Vitamin B-12) (Vitamin B-12)1,000 Mcg Tablet1,000 Mcg PO DAILY 01/28/16 Acetaminophen 500 Mg Tablet1,000 Mg PO Q6H PRN For Pain 01/28/16 Pravastatin 40 Mg Jzjtjl89 Mg PO DAILY Ref 0 01/28/16 Discontinued Reported Medications Fentanyl 12.5 mcg/hr Patch 1 Each Patch.td721 Patch TRANSDERM Q3D Ref 0 06/12/17 Diltiazem ER (Cartia XT)120 Mg Cap.er.02m992 Mg PO DAILY 06/12/17 Fexofenadine (Aller-Fex)180 Mg Nhpuut955 Mg PO 06/12/17 Vit C/Vit E/Lutein/Min/[place]bee-3 (Ocuvite Softgel)1 Each Capsule1 Each PO DAILY 01/28/16 Carvedilol 12.5 Mg Mjvbbp26.5 Mg PO BID Ref 0 03/13/17 Discontinued Scripts [Fentanyl] 12mcg PATCH No Conflict Check1 Patch TOPICAL Q3D #5 Prov:Dimas Lin MD 03/18/17 [Docusate Sodium] (Colace)250 MG CAPSULE No Conflict Vtjxy559 Mg PO BID PRN For Constipation #30 Prov:Dimas Lin MD 03/18/17 Sennosides (Senna)8.6 Mg Tablet8.6 Mg PO HS 30 Days Prov:Dimas Lin MD 03/18/17 [Acetaminophen] (Tylenol)325 MG TABLET No Conflict Jpydl501 Mg PO Q6H 30 Days Prov:Dimas Lin MD 03/18/17 Tramadol (Ultram)50 Mg Arvmoh96 Mg PO Q12H 30 Days Prov:Dimas Lin MD 03/18/17 Lidocaine (Lidoderm)700 Mg Adh..patch1 Patch TOPICAL DAILY 30 Days Prov:Dimas Lin MD 03/18/17 History History of ENT Problems?: No HEENT History: Positive for:: Sinus Problem (NASAL DRAINAGE) Denies:: Abnormal Airway Difficult Intubation Dysphagia Hearing Problem Denture Type: Full- Upper Full- Lower Teeth Condition: No Teeth Hx of Heart Problems?: Yes (DEXTROCARDIA) Cardiovascular History: Positive for:: Atrial Fibrillation (CHRONIC, ON COAGULATION S/P CARDIOVERSION 2001) Congestive Heart Failure Edema Irregular Heartbeat (A FIB rapid response) Valvular Heart Disease (MILD MR/TR) Denies:: AICD Cardiac Surgery Chest Pain Heart Murmur Hypertension Pacemaker Thrombophlebitis Hx of Respiratory Problem?: Yes Respiratory History: Positive for:: COPD Cough Dyspnea (With activity) Denies:: Asthma Chest Surgery Emphysema Hemoptysis Pneumonia Tuberculosis Use of C-PAP Machine Other History/Comment LIES ON RIGHT SIDE Hx Neurologic Problems?: No Neurological History: Positive for:: Dementia Denies:: CVA Hx of GI Problems?: Yes Hx of Problems?: No Male Hx: Denies:: Prostate Problems Scrotal Mass Testicular Surgery Skin History: Positive for:: Pressure Ulcers (HX BILAT LEG ULCERS) Denies:: History Skin Disorders? Hx Musculoskeletal Problems?: Yes Musculoskeletal History: Positive for:: Back Injury (C/OF BACK PAIN) Musculoskeletal Trauma (HX FX RIBS) Denies:: Fibromyalgia Joint Replacement Hx of Psycho/Social Problems?: Yes Psycho Social History: Positive for:: Anxiety Denies:: Bipolar Disorder Hx Depression Suicide Attempt Hx Surgeries?: Yes (hernia repair,LE VEIN SCLEROSING, Parathyroid surgery) Hx Any Other Health Problems?: Yes Other History: Positive for:: Endocrine Disease (HYPERPARATHYROIDISM W/ HX OF HYPERCALCEMIA=CURRENT PROBLEM) Hospitalization (Bowel obstuction) Denies:: Cancer Thyroid Disease (Hyperparathyroid) History Blood Transfusions: Denies:: Blood Transfuse Reaction Blood Transfusions Hx Diabetes: YesBedside Blood Glucose: 189 Hx Alcohol Use: NoHx Substance Use: No Smoking Status: Former Smoker Have You Smoked inLast 12 mo: No Stop/Bang Treated for Sleep Apnea?: No Do You Have a CPAP Machine?: No S-Snoring: Do You Snore Loudly: No T-Tired: feel tired, fatigued: No O-Obsered: Observed not breath: No P-Blood Pressure: treated: Yes B- Body Mass Index > 35 kg/m2: Yes A- Age over 50: Yes N- Neck Large Circumference: Yes G- Gender Male: Yes NEETA Total Score: 5 NEETA Category 2: Yes Risk Assessment Category Category 1A: Patient has history of documented sleep apnea, and HAS NOT received any narcotic, sedative or anesthesia administration during this stay. Category 1B: Patient has history of documented sleep apnea, and HAS received any narcotic , sedative or anesthesia administration during this stay Category 2: Patient has SUSPECTED Obstructive Sleep Apnea, and HAS received any narcotic , sedative or anesthesia administration during this stay. Category 3: Patient has SUSPECTED Obstructive Sleep Apnea and HAS NOT received narcotic, sedative or anesthesia administration during this stay. Category 4: Outpatient in Procedural Areas with known sleep apnea or who screen positive for High Risk via the STOP/BANG questionnaire. Exam Exam Vital Signs Vital Signs Date Time Temp Pulse Resp B/P Pulse Ox O2 Delivery O2 Flow Rate FiO2 06/14/17 12:48 37 92 16 123/77 93 Room Air General Appearance: Alert, Oriented X3 HEENT/AIRWAY: MP 2 (MISSING TEETH) Lungs: Clear to Auscultation, Diminished (LEFT) Heart: Exam Unremarkable Meds/Labs/Diagnostics Bedside Blood Glucose: 189 Plan Impression Patient chart reviewed, patient interviewed and anesthestic plan with risks, benefits, and alternatives discussed, and informed consent obtained. NPO per Anesth. Guidelines: Yes ASA Physical Status: ASA3 Severe Disease Anesthetic Plan: GA Bene/Risks/Altern/Consents: Yes HP Complete Prior to Induction: Yes Naveed Minor MD Jun 14, 2017 13:38
[2017-06-14 14:04] LABS: INR 1.29 ratio
[2017-06-14] MEDS: Lactated Ringer's 1,000 ML IV ONE ×2 (14:56→15:07)
[2017-06-14 15:17] VITALS: BP 121/86; PULSE 91; RESP 22; O2SAT 96
--- NOTE | 2017-06-14 15:18 | PCM.ANEP1 ---
Post Anesthesia PACU Phase 1 Assessment Vital Signs 121/86, 94%, 95 AFib, 18 Vital Signs Date Time Temp Pulse Resp B/P Pulse Ox O2 Delivery O2 Flow Rate FiO2 06/14/17 12:48 37 92 16 123/77 93 Room Air Anesthetic Administered: GA Level of Alertness: Awake, talking MURRAY's with Equal Strength: Yes Pain: No Nausea or Vomiting: No CV Function & Hydration Stable: Yes Airway Device: none Oxygen Delivery: Nasal Cannula Lungs: Clear to Auscultation, Diminished (LEFT) Dermatome Level: Full Sensation Summary uneventful ga PACU Phase 2 Assessment Complications: No Follow up Care: No Patient Instructions Provided: N/A Naveed Minor MD Jun 14, 2017 15:18
[2017-06-14 15:27] VITALS: BP 121/90; PULSE 85; RESP 22; O2SAT 96
--- NOTE | 2017-06-14 15:36 | ENDO ---
[address] [address] ENDOSCOPY PROCEDURE PATIENT: LIZZ ESTRADA : 1945 MR#: [id number] ADMIT: 06/14/2017 JOB ID: [id number] PROCEDURE: Esophagogastroduodenoscopy. INDICATION: Postprandial epigastric pain. ANESTHESIA: The patient's ASA classification, Mallampati score, and medications are as per Dr. Naveed Minor's anesthesia report. INSTRUMENT USED: GIF H 180 J. PROCEDURE DETAILS: After informed consent was obtained, the patient was brought into the GI suite where he was placed on oxygen via nasal cannula and monitored with continuous pulse oximeter, telemetry, and blood pressure monitoring. A time-out was performed, then he was placed in the left lateral decubitus position and medications were administered for sedation. A bite block was placed. The standard esophagogastroduodenoscopy scope was inserted through the bite block and advanced to the first portion of the duodenum. As the patient had a J-shaped stomach, I was unable to advanced the scope into the second portion of the duodenum. The scope was then withdrawn. Random biopsies were obtained in the examined portions of the duodenum. FINDINGS: 1. Normal appearing pylorus. In the antrum and body of the stomach there was mild erythema suggestive of gastritis. Multiple random biopsies were obtained. 2. On retroflexed views in the gastric body, we were able to appreciate the antrum and pylorus as well as the fundus and cardia of the stomach. The fundus and cardia of the stomach appeared unremarkable. 3. Normal-appearing gastroesophageal junction with a regular Z-line at 44 cm. 4. Normal appearing esophagus. IMPRESSION: 1. Mild gastritis. 2. A J-shaped stomach. No findings to explain the patient's postprandial abdominal pain. RECOMMENDATIONS: 1. Await biopsy results. 2. Follow up in GI Clinic. COMPLICATIONS: None. ESTIMATED BLOOD LOSS: Less than 5 mL.
[2017-06-14 15:37] VITALS: BP 142/92; PULSE 93; RESP 20; O2SAT 92
[2017-06-14 15:46] VITALS: BP 132/86; PULSE 83; RESP 22; O2SAT 96
--- NOTE | 2017-06-18 18:09 | PATH ---
SURGICAL PATHOLOGY Attending Physician:Sara Selby CASE STATUS: Signed Out PATIENT NAME: LIZZ ESTRADA PID: [id number] : 1945 DATE COLLECTED:06/14/2017 00:00 SPECIMEN: 1: Duodenum, Biopsy 2: Gastric, Biopsy CLINICAL HISTORY: 1). DUODENAL BIOPSY 2). GASTRIC BIOPSY FINAL DIAGNOSIS: 1.DUODENUM, BIOPSY: DUODENAL MUCOSA WITH NO DIAGNOSTIC ABNORMALITY. Negative for active inflammation, features of sprue, dysplasia, and malignancy. 2.STOMACH, BIOPSY: BODY MUCOSA WITH NO DIAGNOSTIC ABNORMALITY. Negative for Helicobacter organisms. Negative for intestinal metaplasia. Negative for dysplasia and malignancy. ICD10 R10.9 GROSS DESCRIPTION: The specimen is received in two formalin filled containers labeled with the patient's name. 1). The specimen is labeled "duodenal" and consists of 4 extremely tiny portions of tissue which aggregate to 0.2 x 0.2 x 0.2 CM. The specimen is entirely submitted in cassette 1A. 2). The specimen is labeled "gastric" and consists of 2 portions of tissue which aggregate to 0.3 x 0.3 x 0.2 CM. The specimen is entirely submitted in cassette 2A. 06/15/2017IL MICRO DESCRIPTION: See diagnosis. ICD-9 CODES: CPT CODES: 1: 72016 2: 87169 Electronically Signed Out Tariq Anne MD, Ph.D. [facility] Pathology [facility], [place] [address] Technical component performed at [facility], [address] [place] [address] Ave[address], [place], [address]
== END 2017-06-14 23:59 | disposition home or self-care (01) ==
LOC: END 12:24
PROVIDERS: ATTEND Internal Medicine Gastroenterology
DX: K29.70 Gastritis, unspecified, without bleeding (principal); K21.9 Gastro-esophageal reflux disease without esophagitis; E11.42 Type 2 diabetes mellitus with diabetic polyneuropathy; I10 Essential (primary) hypertension; J44.9 Chronic obstructive pulmonary disease, unspecified; I08.1 Rheumatic disorders of both mitral and tricuspid valves; I48.2 Chronic atrial fibrillation; I50.9 Heart failure, unspecified; Z79.4 Long term (current) use of insulin; Z79.01 Long term (current) use of anticoagulants; Z87.891 Personal history of nicotine dependence
CPT/HCPCS: 36415; 43239; 85610; J7120